=== PATIENT | female | born 1965 | race Hispanic/Latino ===

== ENCOUNTER 2016-11-04 00:15 | Inpatient (IN) | payer MEDICARE ==
[2016-11-04] MEDS ORDERED: ATROVENT IH ONE (00:35)
[2016-11-04] MEDS ORDERED: PROVENTIL IH ONE (00:35)
[2016-11-04] MEDS ORDERED: ADRENALINE P/F SUB-Q ONE (00:35)
[2016-11-04] MEDS ORDERED: MAGNESIUM SULFATE 2GM/50ML 2 GM/50 ML BAG IV ONE (00:35)
--- NOTE | 2016-11-04 00:36 | Emergency Department Report ---
ED General Adult HPI - General Chief complaint: Dyspnea/Respdistress Stated complaint: ZIGGY/SOB Time Seen by Provider: 11/04/16 00:33 Source: patient, EMS (verbal report received from EMS.ems notes not available at time of chart dictation), RN notes reviewed Mode of arrival: Ambulatory Limitations: Physical Limitation - History of Present Illness Initial comments: Primary care Dr.: Dr. Jose Armando Crane Nephrology: Dr. Ewa Barone Past medical history: Heart disease, hypertension, COPD, end-stage renal disease on dialysis, congestive heart failure, breast implants Patient on 2 L of oxygen nasal cannula This is a 51-year-old female. She is previously unknown to me. She presents to the hospital with EMS for shortness of breath, abdominal cramping, difficulty breathing. The symptoms are constant. They were shown physical exertion and decreased with rest. The patient reports compliance with her dialysis therapy. There is no hematemesis and bright red blood per rectum. There is no leg pain. There is no leg swelling. No recent change greater than 4 hours. No recent hospital admissions. Upon arrival to the ER, patient was tachypnea, wheezing, hypoxic, and speaking in partial sentences. She is started on stated therapy for COPD, including albuterol, Atrovent, steroids, magnesium. She was started on BiPAP therapy, found to be hypertensive, and initiated on nitroglycerin drip. Nitroglycerin drip is titrated, work of breathing improved, blood pressure came down, laboratory studies demonstrated elevated BNP, chronic renal insufficiency , and hyponatremia. A page is placed to discuss the patient's care with her private circular stuffer. The Hospital physician is paged. -: Gradual Location: abdomen Radiation: non-radiation Quality: aching Consistency: intermittent Improves with: none Worsens with: none Associated Symptoms: shortness of breath, weakness - Related Data Home Medications Medication Instructions Recorded Confirmed Last Taken ALPRAZolam [Xanax TAB] 2 mg PO Q8H 09/27/13 07/13/15 07/12/15 cloNIDine [Catapres] 0.3 mg PO TID 09/27/13 07/13/15 07/12/15 Lisinopril 10 mg PO BID 09/17/14 07/13/15 07/12/15 Carvedilol [Coreg] 25 mg PO BID 07/13/15 07/13/15 07/12/15 Previous Rx's Medication Instructions Recorded Last Taken Type Aspirin [Aspirin TAB] 81 mg PO QDAY #30 tablet 07/14/15 Unknown Rx Nicotine [Habitrol] 14 mg TD QDAY #14 patch 07/14/15 Unknown Rx Zolpidem [Ambien] 10 mg PO QHS PRN #14 tablet 07/14/15 Unknown Rx hydrALAZINE [Apresoline TAB] 25 mg PO Q8HR #60 tab 07/14/15 Unknown Rx ALBUTEROL Inhaler [ProAir HFA 2 puff IH QID PRN #1 inhalation 08/24/15 Unknown Rx Inhaler] ALBUTEROL NEB's [Proventil 0.083% 2.5 mg IH TID 30 Days 07/14/16 Unknown Rx NEBS] Atorvastatin Calcium [Lipitor] 20 mg PO QHS 30 Days 07/14/16 Unknown Rx Budesoni/Formotero 160-4.5(Nf) 2 puff IH BID 30 Days 07/14/16 Unknown Rx [Symbicort 160-4.5 (Nf)] Levofloxacin [Levaquin TAB] 500 mg PO Q48H #3 tablet 07/14/16 Unknown Rx predniSONE [Deltasone] 50 mg PO QDAY #5 tab 07/14/16 Unknown Rx Allergies Allergy/AdvReac Type Severity Reaction Status Date / Time Heparin Analogues Allergy Severe Shortness Verified 04/06/15 12:37 of Breath codeine Allergy Rash Verified 04/06/15 12:37 hydrocodone Allergy Nausea Verified 04/06/15 12:37 latex Allergy Hives Verified 04/06/15 12:37 ED Review of Systems ROS: Stated complaint: ZIGYG/SOB Other details as noted in HPI Comment: Unobtainable due to pts medical conditions Constitutional: malaise, weakness Respiratory: shortness of breath Cardiovascular: dyspnea on exertion Gastrointestinal: abdominal pain Genitourinary: as per HPI Musculoskeletal: as per HPI Skin: as per HPI Neurological: as per HPI, weakness Psychiatric: as per HPI, anxiety ED Past Medical Hx - Past Medical History Previous Medical History?: Yes Hx Hypertension: Yes (2007) Hx CVA: No Hx Heart Attack/AMI: Yes (08/2012) Hx Congestive Heart Failure: Yes (2007) Hx Diabetes: No Hx Deep Vein Thrombosis: No Hx Pulmonary Embolism: No Hx GERD: No Hx Liver Disease: No Hx Renal Disease: Yes (ESRD/graft right arm /Dialysis on M,W, F) Hx Sickle Cell Disease: No Hx Arthritis: Yes Hx Headaches / Migraines: Yes (with High bld pressure) Hx Seizures: No Hx Kidney Stones: No Hx Psychiatric Treatment: Yes (anxiety) Hx Asthma: No Hx COPD: Yes (2007) Hx Tuberculosis: No Hx Dementia: No Hx HIV: No - Surgical History Past Surgical History?: Yes Hx Coronary Stent: No Hx Open Heart Surgery: No Hx Pacemaker: No Hx Internal Defibrillator: No Hx Cholecystectomy: No Hx Appendectomy: No Hx Breast Surgery: Yes (breast implants) Additional Surgical History: Right subclavian vas cath. tubal ligation and reversal. rt arm dialysis shunt - Social History Smoking Status: Former Smoker Substance Use Type: None - Medications Home Medications: Home Medications Medication Instructions Recorded Confirmed Last Taken Type ALPRAZolam [Xanax TAB] 2 mg PO Q8H 09/27/13 07/13/15 07/12/15 History cloNIDine [Catapres] 0.3 mg PO TID 09/27/13 07/13/15 07/12/15 History Lisinopril 10 mg PO BID 09/17/14 07/13/15 07/12/15 History Carvedilol [Coreg] 25 mg PO BID 07/13/15 07/13/15 07/12/15 History Aspirin [Aspirin TAB] 81 mg PO QDAY #30 tablet 07/14/15 Unknown Rx Nicotine [Habitrol] 14 mg TD QDAY #14 patch 07/14/15 Unknown Rx Zolpidem [Ambien] 10 mg PO QHS PRN #14 tablet 07/14/15 Unknown Rx hydrALAZINE [Apresoline TAB] 25 mg PO Q8HR #60 tab 07/14/15 Unknown Rx ALBUTEROL Inhaler [ProAir HFA 2 puff IH QID PRN #1 inhalation 08/24/15 Unknown Rx Inhaler] ALBUTEROL NEB's [Proventil 0.083% 2.5 mg IH TID 30 Days 07/14/16 Unknown Rx NEBS] Atorvastatin Calcium [Lipitor] 20 mg PO QHS 30 Days 07/14/16 Unknown Rx Budesoni/Formotero 160-4.5(Nf) 2 puff IH BID 30 Days 07/14/16 Unknown Rx [Symbicort 160-4.5 (Nf)] Levofloxacin [Levaquin TAB] 500 mg PO Q48H #3 tablet 07/14/16 Unknown Rx predniSONE [Deltasone] 50 mg PO QDAY #5 tab 07/14/16 Unknown Rx ED Physical Exam - General Limitations: Physical Limitation General appearance: alert, in distress - Head Head exam: Present: atraumatic, normocephalic - Eye Eye exam: Present: normal appearance, EOMI - ENT ENT exam: Present: normal exam, normal orophraynx, mucous membranes moist, normal external ear exam - Neck Neck exam: Present: normal inspection, full ROM. Absent: tenderness, meningismus - Respiratory Respiratory exam: Present: respiratory distress, wheezes, rhonchi - Cardiovascular Cardiovascular Exam: Present: normal rhythm, tachycardia, normal heart sounds. Absent: systolic murmur, diastolic murmur, rubs, gallop - GI/Abdominal GI/Abdominal exam: Present: soft, normal bowel sounds. Absent: distended, tenderness, guarding, rebound, rigid, pulsatile mass - Extremities Exam Extremities exam: Present: normal inspection, full ROM, normal capillary refill , other (there is a right upper extremity AV fistula with an appropriate thrill) . Absent: pedal edema, joint swelling, calf tenderness - Back Exam Back exam: Present: normal inspection, full ROM. Absent: paraspinal tenderness - Neurological Exam Neurological exam: Present: alert, oriented X3, other (Extraocular movements intact. Tongue midline. No facial droop. Facial sensation intact to light touch in the V1, V2, V3 distribution bilaterally. 5 and 5 strength in 4 extremities.. Sensation is intact to light touch in 4 extremities.). Absent: motor sensory deficit - Psychiatric Psychiatric exam: Present: anxious - Skin Skin exam: Present: warm, dry, intact, normal color. Absent: rash ED Course Vital Signs 11/04/16 11/04/16 11/04/16 00:25 00:26 00:30 Temperature Pulse Rate 102 H 98 H 98 H Pulse Rate [ Anterior Bilateral Throughout] Respiratory 17 17 Rate Respiratory Rate [Anterior Bilateral Throughout] Blood Pressure 210/118 199/128 O2 Sat by Pulse 100 100 99 Oximetry 11/04/16 11/04/16 11/04/16 00:33 00:43 00:45 Temperature Pulse Rate 98 H Pulse Rate [ 98 H Anterior Bilateral Throughout] Respiratory 18 18 Rate Respiratory 18 Rate [Anterior Bilateral Throughout] Blood Pressure O2 Sat by Pulse 100 100 Oximetry 11/04/16 11/04/16 11/04/16 00:46 00:50 00:56 Temperature Pulse Rate 88 92 H 93 H Pulse Rate [ Anterior Bilateral Throughout] Respiratory 17 19 16 Rate Respiratory Rate [Anterior Bilateral Throughout] Blood Pressure 226/128 226/128 177/105 O2 Sat by Pulse 93 91 Oximetry 11/04/16 11/04/16 11/04/16 01:00 01:06 01:15 Temperature Pulse Rate 91 H 92 H 90 Pulse Rate [ Anterior Bilateral Throughout] Respiratory 17 17 16 Rate Respiratory Rate [Anterior Bilateral Throughout] Blood Pressure 160/94 160/94 149/87 O2 Sat by Pulse 89 90 93 Oximetry 11/04/16 11/04/16 11/04/16 01:30 01:45 01:51 Temperature 98.8 F Pulse Rate 89 95 H Pulse Rate [ 101 H Anterior Bilateral Throughout] Respiratory 16 17 Rate Respiratory 19 Rate [Anterior Bilateral Throughout] Blood Pressure 148/88 144/87 O2 Sat by Pulse 97 98 Oximetry 11/04/16 11/04/16 11/04/16 02:00 02:15 02:30 Temperature Pulse Rate 84 80 81 Pulse Rate [ Anterior Bilateral Throughout] Respiratory 15 14 14 Rate Respiratory Rate [Anterior Bilateral Throughout] Blood Pressure 145/86 131/80 139/79 O2 Sat by Pulse 99 97 98 Oximetry 11/04/16 11/04/16 11/04/16 02:45 03:00 03:15 Temperature Pulse Rate 77 72 71 Pulse Rate [ Anterior Bilateral Throughout] Respiratory 15 14 9 L Rate Respiratory Rate [Anterior Bilateral Throughout] Blood Pressure 120/69 117/67 120/65 O2 Sat by Pulse 97 97 99 Oximetry 11/04/16 11/04/16 03:30 03:45 Temperature Pulse Rate 72 69 Pulse Rate [ Anterior Bilateral Throughout] Respiratory 18 15 Rate Respiratory Rate [Anterior Bilateral Throughout] Blood Pressure 123/72 154/81 O2 Sat by Pulse 97 100 Oximetry - EJ/Peripheral Line Neck L Time Out Performed: Yes Indications: nurses unable to establis Skin Cleansed in Sterile Fashion: Yes Size: 20 Dressing Placed: Tegaderm Patient Tolerated Procedure: well ED Medical Decision Making - Lab Data Result diagrams: 11/04/16 00:50 11/04/16 00:50 Vital Signs 11/04/16 11/04/16 11/04/16 00:25 00:26 00:30 Temperature Pulse Rate 102 H 98 H 98 H Pulse Rate [ Anterior Bilateral Throughout] Respiratory 17 17 Rate Respiratory Rate [Anterior Bilateral Throughout] Blood Pressure 210/118 199/128 O2 Sat by Pulse 100 100 99 Oximetry 11/04/16 11/04/16 11/04/16 00:33 00:43 00:45 Temperature Pulse Rate 98 H Pulse Rate [ 98 H Anterior Bilateral Throughout] Respiratory 18 18 Rate Respiratory 18 Rate [Anterior Bilateral Throughout] Blood Pressure O2 Sat by Pulse 100 100 Oximetry 11/04/16 11/04/16 11/04/16 00:46 00:50 00:56 Temperature Pulse Rate 88 92 H 93 H Pulse Rate [ Anterior Bilateral Throughout] Respiratory 17 19 16 Rate Respiratory Rate [Anterior Bilateral Throughout] Blood Pressure 226/128 226/128 177/105 O2 Sat by Pulse 93 91 Oximetry 11/04/16 11/04/16 11/04/16 01:00 01:06 01:15 Temperature Pulse Rate 91 H 92 H 90 Pulse Rate [ Anterior Bilateral Throughout] Respiratory 17 17 16 Rate Respiratory Rate [Anterior Bilateral Throughout] Blood Pressure 160/94 160/94 149/87 O2 Sat by Pulse 89 90 93 Oximetry 11/04/16 01:30 Temperature 98.8 F Pulse Rate Pulse Rate [ Anterior Bilateral Throughout] Respiratory Rate Respiratory Rate [Anterior Bilateral Throughout] Blood Pressure O2 Sat by Pulse Oximetry Lab Results 11/04/16 11/04/16 11/04/16 Range/Units 00:50 00:50 00:50 WBC 7.8 (4.5-11.0) K/mm3 RBC 2.83 L (3.65-5.03) M/mm3 Hgb 10.2 (10.1-14.3) gm/dl Hct 29.6 L (30.3-42.9) % MCV 105 H (79-97) fl MCH 36 H (28-32) pg MCHC 35 H (30-34) % RDW 14.5 (13.2-15.2) % Plt Count 173 (140-440) K/mm3 Lymph % (Auto) 11.0 L (13.4-35.0) % Mitchell % (Auto) 4.4 (0.0-7.3) % Eos % (Auto) 1.5 (0.0-4.3) % Baso % (Auto) 0.3 (0.0-1.8) % Lymph # 0.9 L (1.2-5.4) K/mm3 Mitchell # 0.3 (0.0-0.8) K/mm3 Eos # 0.1 (0.0-0.4) K/mm3 Baso # 0.0 (0.0-0.1) K/mm3 Seg Neutrophils % 82.8 H (40.0-70.0) % Seg Neutrophils # 6.4 (1.8-7.7) K/mm3 Sodium 126 L (137-145) mmol/L Potassium 5.1 H (3.6-5.0) mmol/L Chloride 84.8 L (98-107) mmol/L Carbon Dioxide 24 (22-30) mmol/L Anion Gap 22 mmol/L BUN 27 H (7-17) mg/dL Creatinine 4.1 H (0.7-1.2) mg/dL Estimated GFR 11 ml/min BUN/Creatinine Ratio 6.58 % Glucose 109 H (65-100) mg/dL Lactic Acid 1.40 (0.7-2.0) mmol/L Calcium 8.7 (8.4-10.2) mg/dL Troponin T < 0.010 (0.00-0.029) ng/mL NT-Pro-B Natriuret Pep (0-900) pg/mL 11/04/16 Range/Units 00:50 WBC (4.5-11.0) K/mm3 RBC (3.65-5.03) M/mm3 Hgb (10.1-14.3) gm/dl Hct (30.3-42.9) % MCV (79-97) fl MCH (28-32) pg MCHC (30-34) % RDW (13.2-15.2) % Plt Count (140-440) K/mm3 Lymph % (Auto) (13.4-35.0) % Mitchell % (Auto) (0.0-7.3) % Eos % (Auto) (0.0-4.3) % Baso % (Auto) (0.0-1.8) % Lymph # (1.2-5.4) K/mm3 Mitchell # (0.0-0.8) K/mm3 Eos # (0.0-0.4) K/mm3 Baso # (0.0-0.1) K/mm3 Seg Neutrophils % (40.0-70.0) % Seg Neutrophils # (1.8-7.7) K/mm3 Sodium (137-145) mmol/L Potassium (3.6-5.0) mmol/L Chloride (98-107) mmol/L Carbon Dioxide (22-30) mmol/L Anion Gap mmol/L BUN (7-17) mg/dL Creatinine (0.7-1.2) mg/dL Estimated GFR ml/min BUN/Creatinine Ratio % Glucose (65-100) mg/dL Lactic Acid (0.7-2.0) mmol/L Calcium (8.4-10.2) mg/dL Troponin T (0.00-0.029) ng/mL NT-Pro-B Natriuret Pep 92855 H (0-900) pg/mL - EKG Data -: EKG Interpreted by Me - EKG Data 11/04/16 02:12 times, 87 bpm, motion artifact, poor R-wave progression, QTC prolonged at 510 ms, abnormal EKG, not consistent with STEMI. Atrial enlargement suggested. Appears unchanged when compared to prior EKG from July 2016 - Radiology Data Radiology results: image reviewed interpreted by me: X-ray of the chest is hyperinflated, demonstrates COPD - Medical Decision Making Differential diagnosis: Pulmonary hypertension, pneumonia, COPD exacerbation, CHF, volume overload Assessment and plan: 51-year-old female with a multifactorial respiratory failure requiring initiation of BiPAP and nitroglycerin therapy. She is found to be hyponatremic, normal troponin, x-ray of the chest does not demonstrate congestive heart failure, elevated proBNP is appreciated. Patient most likely has a mixed picture. She is given high-dose Lasix. The case is presented to the Hospital physician, Dr. Son, who accepts the patient to her service. The case is presented to the circular stuffer Dr Ale Bingham, his group will see the patient in the morning as a consult. Work of breathing has improved markedly since starting nitroglycerin glycerin therapy and BiPAP therapy. Critical Care Time: Yes Critical care time in (mins) excluding proc time.: 35 Critical care attestation.: If time is entered above; I have spent that time in minutes in the direct care of this critically ill patient, excluding procedure time. Critical Care Time: Critical care time includes multiple bedside evaluations, interpretation of laboratory studies, radiology studies, I'm spent managing positive pressure noninvasive ventilation, management of vasoactive medications, discussion with consulting services, including hospital medicine and nephrology. This does not include procedure time. ED Disposition Clinical Impression: COPD with exacerbation, End stage renal disease on dialysis, Hyponatremia, Dyspnea Disposition: OP ADMIT IP TO THIS HOSP Is pt being admited?: Yes Does the pt Need Aspirin: Yes Condition: Good Instructions: Chronic Obstructive Pulmonary Disease (ED) Referrals: PRIMARY CARE, [Primary Care Provider] - 3-5 Days
[2016-11-04] MEDS ORDERED: ADRENALIN ONE (00:37)
[2016-11-04] MEDS ORDERED: TRIDIL DRIP 50MG/250ML 50 MG/250 ML BOTTLE ONE (00:45)
[2016-11-04] MEDS ORDERED: TRIDIL DRIP 50MG/250ML 50 MG/250 ML BOTTLE IV ONE (01:13)
[2016-11-04 01:16] LABS: Anion Gap 22 mmol/L; BUN/Creatinine Ratio 6.58; Blood Urea Nitrogen 27 mg/dL (7-17); Calcium 8.7 mg/dL (8.4-10.2); Carbon Dioxide 24 mmol/L (22-30); Chloride 84.8 mmol/L (98-107); Glucose 109 mg/dL (65-100); Potassium 5.1 mmol/L (3.6-5.0); Sodium 126 mmol/L (137-145)
[2016-11-04 01:22] LABS: Basophils % (Auto) 0.3 % (0.0-1.8); Eosinophils % (Auto) 1.5 % (0.0-4.3); Hematocrit 29.6 % (30.3-42.9); Hemoglobin 10.2 gm/dl (10.1-14.3); Mean Corpuscular HGB Conc 35 % (30-34); Mean Corpuscular Hemoglobin 36 pg (28-32); Mean Corpuscular Volume 105 fl (79-97); Platelet Count 173 K/mm3 (140-440); Red Blood Count 2.83 M/mm3 (3.65-5.03); Red Cell Distribution Width 14.5 % (13.2-15.2); White Blood Count 7.8 K/mm3 (4.5-11.0)
[2016-11-04] MEDS ORDERED: LASIX IV ONE (01:35)
[2016-11-04 01:39] LABS: INR 1.03 (0.87-1.13)
[2016-11-04] MEDS ORDERED: BABY ASPIRIN PO ONE (01:46)
--- NOTE | 2016-11-04 01:48 | XRay Report ---
FINAL REPORT EXAM: XR CHEST 1V AP HISTORY: sob TECHNIQUE: 2, portable chest x-rays. PRIORS: 09 July 2016. FINDINGS: Patient rotated to the right. Mild cardiomegaly stable. Lungs are mildly hyperinflated, with probable chronic interstitial change and sequelae of COPD about the same. No significant vascular congestion, focal consolidation or apparent pneumothorax. IMPRESSION: 1. Stable examination. No acute consolidation.
--- NOTE | 2016-11-04 02:47 | Admit Criteria Form ---
Admission Criteria Documentation: RESPIRATORY FAILURE GRG Clinical Indications for Admission to Inpatient Care (Place 'X' for any and all applicable criteria): Hospital admission is needed for appropriate care of the patient because of acute respiratory failure or insufficiency as indicated by ANY ONE of the following(1)(2)(3)(4)(5)(6)(7)(8): [ X]I. Mechanical ventilation needed (acute invasive or noninvasive) [ ]II. Severe ventilation deficit as indicated by ANY ONE of the following (9) [ ]a) Respiratory acidosis (pH less than 7.32 and partial pressure of carbon dioxide greater than 40 mm Hg (5.3 kPa)) [ ]b) Partial pressure of carbon dioxide greater than 44 mm Hg (5.9 kPa ) (new) [ ]c) Airflow measurements less than 25% of predicted (eg, peak expiratory flow rate less than 100 L/minute) [ ]d) Forced vital capacity less than 15 mL/kg of ideal body weight, or 50% decrease in vital capacity from baseline [ ]III. Noncardiac pulmonary edema not resolving with rapid emergency treatment (8) [ ]IV. Severe respiratory distress as indicated by ANY ONE of the following: [ ]a) Severe tachypnea (respiratory rate greater than 30, greater than 45 for 6-month-old, greater than 60 for ) [ ]b) Severe hypoxemia (partial pressure of oxygen less than 50 mm Hg ( 6.7 kPa) on greater than 50% oxygen or partial pressure of oxygen to FIO2 ratio less than 200) [ ]c) Mental status deterioration from respiratory disease [ ]V. Airway obstruction or inadequate protection [A](10)(11) The original [employer] content created by [employer] has been revised. The portions of the content which have been revised are identified through the use of italic text or in bold, and [employer] has neither reviewed nor approved the modified material. All other unmodified content is copyright [employer]. Please see references footnoted in the original [employer] edition 2016 Admission Criteria Met: Yes
[2016-11-04] MEDS ORDERED: APRESOLINE IV ONE (04:42)
[2016-11-04] MEDS ORDERED: APRESOLINE IV PRN (04:44)
[2016-11-04] MEDS ORDERED: XANAX PO ONE (06:15)
--- NOTE | 2016-11-04 07:02 | History and Physical Report ---
History of Present Illness Date of examination: 11/04/16 Date of admission: 11/04/16 04:41 History of present illness: 51-year-old man with a history of coronary artery disease, hypertension, COPD, end-stage renal disease on dialysis, CHF comes emergency room with complaints of worsening shortness of breath, wheezing. Patient was interested distress and started on BiPAP Constitutional: no fever, no chills, no weight loss Ears, eyes, nose, mouth and throat: no nasal congestion, no nasal discharge, no sinus pressure, no vision change, no red eye. Neck: No neck pain or rigidity. Cardiovascular: chest pain, no orthopnea, no palpitations, no leg swelling Respiratory: No no congestion, no wheezing Gastrointestinal: abdominal pain, hematochezia, no nausea, no vomiting Genitourinary : no dysuria, frequency , no hematuria Musculoskeletal: no joint swelling or muscle ache Integumentary: no rash, no pruritis Neurological: no parathesias, no numbness, no focal weakness Endocrine: no cold or heat intolerance, no polyuria or polydipsia Hematologic/Lymphatic: no easy bruising, no easy bleeding, no gland swelling Allergic/Immunologic: no urticaria, no angioedema. Past medical history:coronary artery disease, hypertension, COPD, end-stage renal disease on dialysis, CHF PAST SURGICAL HISTORY: Breast implants, tubal ligation and reversal SOCIAL HISTORY: Denies alcohol, tobacco, drugs FAMILY HISTORY: Hypertension Medications and Allergies Allergies Allergy/AdvReac Type Severity Reaction Status Date / Time Heparin Analogues Allergy Severe Shortness Verified 04/06/15 12:37 of Breath codeine Allergy Rash Verified 04/06/15 12:37 hydrocodone Allergy Nausea Verified 04/06/15 12:37 latex Allergy Hives Verified 04/06/15 12:37 Home Medications Medication Instructions Recorded Confirmed Last Taken Type ALPRAZolam [Xanax TAB] 2 mg PO Q8H 09/27/13 11/04/16 07/12/15 History cloNIDine [Catapres] 0.3 mg PO TID 09/27/13 11/04/16 07/12/15 History Lisinopril 10 mg PO BID 09/17/14 11/04/16 07/12/15 History Carvedilol [Coreg] 25 mg PO BID 07/13/15 11/04/16 07/12/15 History Aspirin [Aspirin TAB] 81 mg PO QDAY #30 tablet 07/14/15 11/04/16 Unknown Rx Zolpidem [Ambien] 10 mg PO QHS PRN #14 tablet 07/14/15 11/04/16 Unknown Rx hydrALAZINE [Apresoline TAB] 25 mg PO Q8HR #60 tab 07/14/15 11/04/16 Unknown Rx ALBUTEROL Inhaler [ProAir HFA 2 puff IH QID PRN #1 inhalation 08/24/15 11/04/16 Unknown Rx Inhaler] ALBUTEROL NEB's [Proventil 0.083% 2.5 mg IH TID 30 Days 07/14/16 11/04/16 Unknown Rx NEBS] Atorvastatin Calcium [Lipitor] 20 mg PO QHS 30 Days 07/14/16 11/04/16 Unknown Rx Budesoni/Formotero 160-4.5(Nf) 2 puff IH BID 30 Days 07/14/16 11/04/16 Unknown Rx [Symbicort 160-4.5 (Nf)] Active Meds: Active Medications Hydralazine HCl (Apresoline) 5 mg IV Q6H PRN PRN Reason: Hypertension Nitroglycerin/Dextrose (Tridil Drip 50mg/250ml) 50 mg in 250 mls @ 3 mls/hr IV TITR ONE; 10 MCG/MIN PRN Reason: Protocol Stop: 11/07/16 12:32 Last Titration: 11/04/16 03:35 Dose: 0 mcg/min, 0 mls/hr Exam - Physical Exam Narrative exam: Gen. appearance: Patient lying in bed, no apparent distress HEENT: Normocephalic, atraumatic, pupils equally round and reactive to light, extraocular movement intact, and no sclericterus,. No JVD or thyromegaly or nodule,neck supple, no carotid bruit ,mucous membranes moist, no exudate or erythema Heart: S1, S2, regular rate and rhythm Lungs: Wheezing bilaterally, breathing comfortable Abdomen: Positive bowel sounds, nontender, nondistended, no organomegaly Extremity: No edema, cyanosis, clubbing Skin: No rash, nodules, warm, dry Neuro: Oriented 3, cranial nerves II-12 intact, speech is fluent, motor and sensory intact - Constitutional Vitals: Temp Pulse Resp BP Pulse Ox 98.8 F 72 24 137/76 99 11/04/16 01:30 11/04/16 06:11 11/04/16 06:18 11/04/16 05:30 11/04/16 05:30 Results - Labs CBC & Chem 7: 11/04/16 00:50 11/04/16 00:50 Assessment and Plan Acute respiratory failure COPD exacerbation Coronary artery disease End-stage renal disease on dialysis CHF, stable admit Hypertension Thrombocytopenia Admits medicine Start steroids, nebulizer treatments Consult renal for dialysis Continue appropriate outpatient medications, start DVT prophylaxis
[2016-11-04] MEDS ORDERED: PROAIR IH PRN (07:42)
[2016-11-04] MEDS ORDERED: NON-FORMULARY (Alprazolam [Xanax Tab] 2 MG) PO SCH (07:45)
[2016-11-04] MEDS ORDERED: PROVENTIL IH SCH (08:00)
[2016-11-04] MEDS: DUONEB *Not for PRN Use IH SCH ×2 (09:57→14:57)
[2016-11-04] MEDS ORDERED: ASPIRIN PO SCH (10:00)
[2016-11-04] MEDS ORDERED: NON-FORMULARY (Budesoni/Formotero 160-4.5(Nf) 2 PUFF) IH SCH (10:00)
--- NOTE | 2016-11-04 10:59 | Consultation ---
History of Present Illness - Reason for Consult Consult date: 11/04/16 end stage renal disease - History of Present Illness This is a 51 year old female who has a history of Hypertension, COPD on home oxygen, CHF, CAD and ESRD on HD who presented to the hospital today with a chief complaint of Shortness of breath. CXR was obtained in E.R that revealed chronic COPD. Patient was placed on breathing treatments and steroid and is feeling better. Patient reports that she was also feeling anxious yesterday evening as well when she began to have her shortnesso f breath and took one of her Xanax pills. Patient was also noted to be with uncontrolled Hypertension and was placed on Nitroglycerin drip which has been weaned. Patient has been compliant with hemodialysis over the last several months but continues to smoke. Patient's Cardiac Nurse Specialist is Dr. Aranda. Patient was last hemodialyzed on Monday. We are being consulted for management of this patient 's ESRD. Past History Past Medical History: anemia, CAD, COPD, dialysis, ESRD, heart failure, hypertension Past Surgical History: Other (AVF placement) Social history: no significant social history Family history: no significant family history Medications and Allergies Allergies Allergy/AdvReac Type Severity Reaction Status Date / Time Heparin Analogues Allergy Severe Shortness Verified 04/06/15 12:37 of Breath codeine Allergy Rash Verified 04/06/15 12:37 hydrocodone Allergy Nausea Verified 04/06/15 12:37 latex Allergy Hives Verified 04/06/15 12:37 Home Medications Medication Instructions Recorded Confirmed Last Taken Type ALPRAZolam [Xanax TAB] 2 mg PO Q8H 09/27/13 11/04/16 07/12/15 History cloNIDine [Catapres] 0.3 mg PO TID 09/27/13 11/04/16 07/12/15 History Lisinopril 10 mg PO BID 09/17/14 11/04/16 07/12/15 History Carvedilol [Coreg] 25 mg PO BID 07/13/15 11/04/16 07/12/15 History Aspirin [Aspirin TAB] 81 mg PO QDAY #30 tablet 07/14/15 11/04/16 Unknown Rx Zolpidem [Ambien] 10 mg PO QHS PRN #14 tablet 07/14/15 11/04/16 Unknown Rx hydrALAZINE [Apresoline TAB] 25 mg PO Q8HR #60 tab 07/14/15 11/04/16 Unknown Rx ALBUTEROL Inhaler [ProAir HFA 2 puff IH QID PRN #1 inhalation 08/24/15 11/04/16 Unknown Rx Inhaler] ALBUTEROL NEB's [Proventil 0.083% 2.5 mg IH TID 30 Days 07/14/16 11/04/16 Unknown Rx NEBS] Atorvastatin Calcium [Lipitor] 20 mg PO QHS 30 Days 07/14/16 11/04/16 Unknown Rx Budesoni/Formotero 160-4.5(Nf) 2 puff IH BID 30 Days 07/14/16 11/04/16 Unknown Rx [Symbicort 160-4.5 (Nf)] Active Meds: Active Medications Albuterol (Proventil) 2.5 mg IH TID [facility] Last Admin: 11/04/16 09:58 Dose: Not Given Albuterol (Proventil) 2.5 mg IH Q4HRT PRN PRN Reason: Shortness Of Breath Albuterol/Ipratropium (Duoneb *Not For Prn Use*) 1 ampul IH Q6HRT [facility] Last Admin: 11/04/16 09:57 Dose: 1 ampul Alprazolam (Xanax) 2 mg PO Q8H [facility] Aspirin (Baby Aspirin) 81 mg PO QDAY [facility] Atorvastatin Calcium (Lipitor) 20 mg PO QHS [facility] Carvedilol (Coreg) 25 mg PO BID [facility] Clonidine HCl (Catapres) 0.3 mg PO TID [facility] Hydralazine HCl (Apresoline) 5 mg IV Q6H PRN PRN Reason: Hypertension Hydralazine HCl (Apresoline) 25 mg PO Q8HR [facility] Nitroglycerin/Dextrose (Tridil Drip 50mg/250ml) 50 mg in 250 mls @ 3 mls/hr IV TITR ONE; 10 MCG/MIN PRN Reason: Protocol Stop: 11/07/16 12:32 Last Titration: 11/04/16 03:35 Dose: 0 mcg/min, 0 mls/hr Methylprednisolone Sodium Succinate (Solu-Medrol) 125 mg IV Q6H [facility] Miscellaneous Medication (Budesoni/Formotero 160-4.5(Nf)) 2 puff IH BID [facility] Zolpidem Tartrate (Ambien) 10 mg PO QHS PRN PRN Reason: Insomnia Review of Systems Constitutional: fatigue, weakness, no weight loss, no weight gain, no fever, no chills, no sweats Ears, nose, mouth and throat: no ear pain, no ear discharge, no tinnitis, no decreased hearing, no nose pain, no nasal congestion, no nasal discharge Breasts: deferred Cardiovascular: shortness of breath, dyspnea on exertion, high blood pressure Respiratory: shortness of breath, dyspnea on exertion, no cough with sputum, no excessive sputum, no hemoptysis Gastrointestinal: abdominal pain, no nausea, no vomiting, no diarrhea, no constipation, no change in bowel habits, no hematemesis Genitourinary Female: no pelvic pain, no flank pain, no menorrhagia, no dysuria , no urinary frequency, no urgency Menstruation: no premenarcheal, no post hysterectomy, no ammenorrhea, no period normal, no period heavy Rectal: no pain, no incontinence, no bleeding, no itching, no hemorrhoids Musculoskeletal: no neck stiffness, no neck pain, no shooting arm pain, no arm numbness/tingling, no low back pain, no shooting leg pain, no leg numbness/ tingling Integumentary: no rash, no pruritis, no redness, no sores, no wounds, no jaundice, no boils, no blisters Neurological: weakness, no head injury, no transient paralysis, no paralysis, no parathesias, no numbness, no tingling, no seizures, no syncope, no tremors Psychiatric: anxiety, no memory loss, no change in sleep habits, no sleep disturbances, no insomnia, no change in appetite, no suicidal ideation, no disorientation, no hallucinations Endocrine: no cold intolerance, no heat intolerance, no polyphagia, no excessive thirst, no polydipsia, no polyuria, no nocturia Hematologic/Lymphatic: no easy bruising, no easy bleeding, no lymphadenopathy, no lymphedema Exam - Vital Signs Vital signs: Vital Signs Pulse Resp Pulse Ox 102 H 17 100 11/04/16 00:25 11/04/16 00:25 11/04/16 00:25 - General Appearance General appearance: well-developed, appears stated age, fatigue EENT: ATNC, PERRL, hearing intact, vision intact Neck: Present: neck supple, trachea midline Respiratory: Decreased Breath Sounds Heart: regular, S1S2 Gastrointestinal: Present: normoactive bowel sounds Integumentary: warm and dry Neurologic: alert and oriented x3 Musculoskeletal: Absent: deformities, joint swelling Psychiatric: mood/affect appropriate, cooperative Results - Lab Results 11/04/16 00:50 11/04/16 00:50 Most recent lab results Calcium 8.7 mg/dL (8.4-10.2) 11/04/16 00:50 Assessment and Plan - Patient Problems (1) COPD with exacerbation Current Visit: Yes Status: Chronic Plan to address problem: On Albuterol, Budesonide and Solumedrol (2) End stage renal disease on dialysis Current Visit: Yes Status: Chronic Plan to address problem: Patient is on hemodialysis every Monday, Monday and Monday's Patient is due for hemodialysis today Hemodialysis has been ordered today with UF goal 3-[address] on fluid restriction of 1 liter per day Obtain Phosphorus and repeat CMP levels in a.m Renal diet Monitor I/O's Obtain daily weights (3) Hyponatremia Current Visit: Yes Status: Acute Plan to address problem: Likely dilutional secondary to ESRD. Hemodialysis today Fluid restriction of 1 liter per day (4) Hypertensive CKD, ESRD on dialysis Current Visit: No Status: Acute Plan to address problem: S/P Nitroglycerin drip On Carvedilol 25 mg po BID, Clonidine 0.3 mg po TID and Hydralazine 25 mg po TID
[2016-11-04] MEDS ORDERED: PROVENTIL IH PRN ×2 (12:00)
[2016-11-04] MEDS ORDERED: NACL 0.9 (PRIMING MACHINE ONLY DIALYSIS) MC ONE (12:22)
[2016-11-04] MEDS: COREG PO SCH ×2 (16:07→21:09)
[2016-11-04] MEDS: XANAX PO SCH (16:07)
[2016-11-04] MEDS: CATAPRES PO SCH ×2 (16:07→21:09)
[2016-11-04] MEDS: APRESOLINE PO SCH ×3 (16:07→21:10)
[2016-11-04] MEDS: BABY ASPIRIN PO SCH (16:07)
--- NOTE | 2016-11-04 18:50 | Event Note ---
Date: 11/04/16 Patient was admitted this morning with worsening shortness of breath, end-stage renal disease When evaluated, medical records reviewed, follow nephrology evaluation and recommendations Continue current management, plan of care discussed with the patient and her nurse
[2016-11-04] MEDS ORDERED: PULMICORT IH SCH (20:00)
[2016-11-04] MEDS ORDERED: BROVANA NEBU IH SCH (20:00)
[2016-11-04] MEDS: PULMICORT IH SCH (20:06)
[2016-11-04] MEDS: BROVANA NEBU IH SCH (20:06)
[2016-11-04] MEDS ORDERED: AMBIEN PO PRN (22:00)
[2016-11-05] MEDS: DUONEB *Not for PRN Use IH SCH ×4 (00:45→13:15)
[2016-11-05 04:58] LABS: Hematocrit 31.1 % (30.3-42.9); Hemoglobin 10.6 gm/dl (10.1-14.3); Mean Corpuscular HGB Conc 34 % (30-34); Mean Corpuscular Hemoglobin 36 pg (28-32); Mean Corpuscular Volume 105 fl (79-97); Platelet Count 152 K/mm3 (140-440); Red Blood Count 2.95 M/mm3 (3.65-5.03); Red Cell Distribution Width 15.1 % (13.2-15.2); White Blood Count 7.2 K/mm3 (4.5-11.0)
[2016-11-05 05:12] LABS: Chloride 93.8 mmol/L (98-107); Potassium 4.5 mmol/L (3.6-5.0)
[2016-11-05] MEDS: XANAX PO SCH ×2 (05:35→06:33)
[2016-11-05 06:21] LABS: Anisocytosis 1+; Basophils % (Manual) 0 % (0.0-1.8); Blastocytes % (Manual) 0 %; Diff Status Complete; Eosinophils % (Manual) 0 % (0.0-4.3); Macrocytosis 1+; Platelet Estimate Consistent w Auto; Polychromasia Rare
[2016-11-05] MEDS: APRESOLINE PO SCH ×2 (06:33→14:02)
[2016-11-05] MEDS: PULMICORT IH SCH (07:34)
[2016-11-05] MEDS: BROVANA NEBU IH SCH (07:34)
[2016-11-05] MEDS ORDERED: XANAX PO SCH (08:00)
[2016-11-05] MEDS: CATAPRES PO SCH ×2 (08:12→14:03)
[2016-11-05] MEDS: COREG PO SCH (09:55)
[2016-11-05] MEDS: BABY ASPIRIN PO SCH (09:55)
--- NOTE | 2016-11-05 09:57 | Progress Note ---
Assessment and Plan (1) COPD with exacerbation Current Visit: Yes Status: Chronic Plan to address problem: On Albuterol, Budesonide and Solumedrol (2) End stage renal disease on dialysis Current Visit: Yes Status: Chronic Plan to address problem: HD again today for clearance and volume removal as tolerated Will place on fluid restriction of 1 liter per day Obtain Phosphorus and repeat CMP levels in a.m Renal diet Monitor I/O's Obtain daily weights (3) Hyponatremia Current Visit: Yes Status: Acute Plan to address problem: improved with HD Fluid restriction of 1 liter per day (4) Hypertensive CKD, ESRD on dialysis Current Visit: No Status: Acute Plan to address problem: S/P Nitroglycerin drip On Carvedilol 25 mg po BID, Clonidine 0.3 mg po TID and Hydralazine 25 mg po TID Subjective Date of service: 11/05/16 Principal diagnosis: ESRD Interval history: tolerated HD well yesterday, SOB is improving Objective - Vital Signs Vital signs: Vital Signs - 12hr 11/05/16 11/05/16 11/05/16 00:04 05:07 07:36 Temperature 97.6 F 98.2 F Pulse Rate 80 77 Pulse Rate [ 72 Anterior Bilateral Throughout] Respiratory 18 18 Rate Respiratory 18 Rate [Anterior Bilateral Throughout] Blood Pressure 146/69 189/88 O2 Sat by Pulse 99 98 Oximetry 11/05/16 11/05/16 07:45 08:44 Temperature 98.2 F Pulse Rate 74 Pulse Rate [ 75 Anterior Bilateral Throughout] Respiratory 74 H Rate Respiratory 18 Rate [Anterior Bilateral Throughout] Blood Pressure 168/83 O2 Sat by Pulse 100 Oximetry - General Appearance General appearance: well-developed, cachectic EENT: ATNC, PERRL, mucous membranes moist Neck: no JVD, no carotid bruit Respiratory: Present: Wheezes, Decreased Breath Sounds. Absent: Rales Cardiology: regular, S1S2 Gastrointestinal: normoactive bowel sounds, no tenderness, no distended, no guarding Integumentary: no rash, warm and dry Neurologic: no focal deficit, no asterixis, alert and oriented x3 Musculoskeletal: other (no edema in BLE) Psychiatric: mood/affect appropriate, cooperative - Lab 11/05/16 03:38 11/05/16 03:38 Most recent lab results Calcium 9.0 mg/dL (8.4-10.2) 11/05/16 03:38 Phosphorus 3.00 mg/dL (2.5-4.5) 11/05/16 03:38
[2016-11-05 12:51] VITALS: BP 154/80
--- NOTE | 2016-11-05 12:57 | Discharge Summary ---
Providers - Providers Date of Admission: 11/04/16 04:41 Date of discharge: 11/05/16 Attending physician: BIANCA Bingham Primary care physician: DIRECTOR OF OUTREACH Hospitalization Condition: Good Hospital course: See Dictated discharge summary in reports Disposition: DC-01 TO HOME OR SELFCARE Time spent for discharge: 32 min Core Measure Documentation - Palliative Care Palliative Care/ Comfort Measures: Not Applicable - Core Measures Any of the following diagnoses?: none Exam - Constitutional Vitals: Temp Pulse Resp BP Pulse Ox 98.2 F 74 20 168/83 100 11/05/16 08:44 11/05/16 10:00 11/05/16 10:00 11/05/16 09:55 11/05/16 10:00 General appearance: Present: no acute distress, well-nourished - EENT Eyes: Present: PERRL ENT: hearing intact, clear oral mucosa - Neck Neck: Present: supple, normal ROM - Respiratory Respiratory effort: normal Respiratory: bilateral: CTA - Cardiovascular Heart Sounds: Present: S1 & S2. Absent: rub, click - Extremities Extremities: pulses symmetrical, No edema Peripheral Pulses: within normal limits - Abdominal General gastrointestinal: Present: soft, non-tender, non-distended, normal bowel sounds Female genitourinary: Present: normal - Integumentary Integumentary: Present: clear, warm, dry - Musculoskeletal Musculoskeletal: gait normal, strength equal bilaterally - Psychiatric Psychiatric: appropriate mood/affect, intact judgment & insight - Neurologic Neurologic: CNII-XII intact, moves all extremities Plan Activity: no restrictions Diet: renal Follow up with: PRIMARY CAREMD [Primary Care Provider] - 3-5 Days
--- NOTE | 2016-11-05 14:01 | Discharge Summary ---
HOSPITAL COURSE: The patient was admitted for increasing shortness of breath and respiratory distress. The patient presented to the Emergency Room with shortness of breath, abdominal cramping, difficulty breathing. Also increasing with physical exertion and decreasing with rest. The patient reports compliance with dialysis. No hematemesis, no bright blood per rectum. No leg swelling. Also, the patient has COPD and the patient is on albuterol, Atrovent, steroids and magnesium. She was started on BiPAP therapy and was also started on nitroglycerin drip because of the blood pressure. The patient did well in the ER, responded to nebulizer treatments and nitroglycerin drip. The patient's nitroglycerin drip was discontinued to telemetry. The patient had nebulizer treatments and hemodialysis treatments, after which, the patient's blood pressure has become better and breathing has improved dramatically. Her blood pressure dropped from 210/118 to 168/83 over the course of next 36-48 hours. The patient to stop smoking. At the time of examination on 11/05/2016, the patient has clear lung sounds, no wheezing, no shortness of breath, no respiratory distress. The patient is wanting to go home. The patient stated that she is going to be compliant with hemodialysis. The patient's blood pressure is reasonable. OBJECTIVE: Vital signs at the time of discharge are blood pressure of 168/73, pulse of 71, sats of 100%, temperature of 98.2%. ASSESSMENT AND PLAN: 1. Chronic obstructive pulmonary disease exacerbation. 2. Volume overload. 3. Hypertensive emergency, which is improved. 4. Hyperlipidemia. The patient is being discharged on clonidine 0.3, three times a day; lisinopril 10 mg twice a day and Coreg 25 mg twice a day. Nebulizer treatments. Also, the patient to stop smoking. REPEAT DISCHARGE DIAGNOSES: 1. Hypertensive emergency. 2. Chronic obstructive pulmonary disease exacerbation. 3. Volume overload. 4. End-stage renal disease, on dialysis. 5. Hyperlipidemia. 6. Nicotine dependence. Follow up with , the yam curer and also follow up with PCP. JOB# [id number] VSM/NTS
== END 2016-11-05 15:32 | disposition home or self-care (01) | DRG 189 ==
LOC: ED 00:15 → 4A 04:41
PROVIDERS: ADMIT Internal Medicine; ATTEND Internal Medicine
PROC: 5A1D60Z (ICD-10-PCS; principal; 2016-11-04)
PROC: 5A09357 Assistance with Respiratory Ventilation, Less than 24 Consecutive Hours, Continuous Positive Airway Pressure (ICD-10-PCS; 2016-11-04)
DX: J96.01 Acute respiratory failure with hypoxia (principal); N18.6 End stage renal disease; I13.2 Hypertensive heart and chronic kidney disease with heart failure and with stage 5 chronic kidney disease, or end stage renal disease; J44.1 Chronic obstructive pulmonary disease with (acute) exacerbation; E87.1 Hypo-osmolality and hyponatremia; I16.1 Hypertensive emergency; I50.9 Heart failure, unspecified; D69.6 Thrombocytopenia, unspecified; I25.2 Old myocardial infarction; G43.909 Migraine, unspecified, not intractable, without status migrainosus; F41.9 Anxiety disorder, unspecified; I25.10 Atherosclerotic heart disease of native coronary artery without angina pectoris; Z82.49 Family history of ischemic heart disease and other diseases of the circulatory system; Z88.5 Allergy status to narcotic agent; Z88.6 Allergy status to analgesic agent; Z91.040 Latex allergy status; Z79.899 Other long term (current) drug therapy; Z98.51 Tubal ligation status; Z87.891 Personal history of nicotine dependence
CPT/HCPCS: 36415; 71010; 80048; 82140; 83880; 84100; 84484; 85007; 85025; 85610; 93005; 93010; 94640; 94644; 96365; 96375; A9270-GY; J0171; J0360; J1940; J2930; J3475; J7030

== ENCOUNTER 2016-12-16 02:54 | Inpatient (IN) | payer MEDICARE ==
[2016-12-16 04:31] LABS: Basophils % (Auto) 0.5 % (0.0-1.8); Hematocrit 38.4 % (30.3-42.9); Hemoglobin 12.7 gm/dl (10.1-14.3); Mean Corpuscular HGB Conc 33 % (30-34); Mean Corpuscular Hemoglobin 34 pg (28-32); Mean Corpuscular Volume 102 fl (79-97); Platelet Count 142 K/mm3 (140-440); Red Blood Count 3.76 M/mm3 (3.65-5.03); Red Cell Distribution Width 14.2 % (13.2-15.2); White Blood Count 7.1 K/mm3 (4.5-11.0)
[2016-12-16 04:38] LABS: INR 0.93 (0.87-1.13)
[2016-12-16 04:39] LABS: Partial Thromboplastin Time 27.5 Sec. (24.2-36.6)
[2016-12-16 05:55] LABS: BUN/Creatinine Ratio 7.67; Blood Urea Nitrogen 33 mg/dL (7-17); Calcium 7.7 mg/dL (8.4-10.2); Carbon Dioxide 19 mmol/L (22-30); Chloride 84.7 mmol/L (98-107); Glucose 101 mg/dL (65-100); Sodium 128 mmol/L (137-145)
[2016-12-16 06:14] LABS: Anion Gap 30 mmol/L; Potassium 5.9 mmol/L (3.6-5.0)
[2016-12-16] MEDS ORDERED: XANAX PO ONE ×2 (07:06→22:37)
[2016-12-16] MEDS ORDERED: D50W (25GM) Syringe IV ONE (07:09)
--- NOTE | 2016-12-16 07:11 | Emergency Department Report ---
ED Chest Pain HPI - General Chief Complaint: Chest Pain Stated Complaint: POSS HIGH BP Time Seen by Provider: 12/16/16 06:42 Source: patient Mode of arrival: Wheelchair Limitations: No Limitations - History of Present Illness Initial Comments: 51-year-old female with end-stage renal disease here with shortness of breath and chest pain. Patient states she woke up feeling very short of breath and having difficult breathing. Had some mild chest pain with these symptoms. Denies fevers chills. She is very anxious when speaking with her. She speaks in 5 word sentences. MD Complaint: chest pain, other (shortness of breath) -: Sudden Onset: during rest, during exertion Pain Location: substernal Pain Radiation: none Severity scale (0 -10): 8 Improves With: other (oxygen) Worsens With: nothing re: dyspnea. denies: nausea, vomting, diaphoresis Other Symptoms: denies: cough, fever, syncope, rash, acid taste in mouth, palpitations, burping - Related Data Home Medications Medication Instructions Recorded Confirmed Last Taken ALPRAZolam [Xanax TAB] 2 mg PO Q8H 09/27/13 12/16/16 07/12/15 Previous Rx's Medication Instructions Recorded Last Taken Type Zolpidem [Ambien] 10 mg PO QHS PRN #14 tablet 07/14/15 Unknown Rx ALBUTEROL Inhaler [ProAir HFA 2 puff IH QID PRN #1 inhalation 08/24/15 Unknown Rx Inhaler] ALBUTEROL NEB's [Proventil 0.083% 2.5 mg IH TID 30 Days 11/05/16 Unknown Rx NEBS] Aspirin [Aspirin TAB] 81 mg PO QDAY #100 tablet 11/05/16 Unknown Rx AtorvaSTATin [Lipitor] 20 mg PO QHS #30 tablet 11/05/16 Unknown Rx Budesoni/Formotero 160-4.5(Nf) 2 puff IH BID 30 Days 11/05/16 Unknown Rx [Symbicort 160-4.5 (Nf)] Carvedilol [Coreg] 25 mg PO BID #60 tablet 11/05/16 Unknown Rx Lisinopril 10 mg PO BID #60 11/05/16 07/12/15 Rx cloNIDine [Catapres] 0.3 mg PO TID #90 tablet 07/29/17 Unknown Rx hydrALAZINE [Apresoline TAB] 50 mg PO Q8HR #90 tablet 11/05/16 Unknown Rx Allergies Allergy/AdvReac Type Severity Reaction Status Date / Time Heparin Analogues Allergy Severe Shortness Verified 04/06/15 12:37 of Breath codeine Allergy Rash Verified 04/06/15 12:37 hydrocodone Allergy Nausea Verified 04/06/15 12:37 latex Allergy Hives Verified 04/06/15 12:37 Heart Score - HEART Score History: Slightly suspicious EKG: Non-specific Age: 45-65 Risk factors: > 3 risk factors or hx of atherosclerotic disease Troponin: < normal limit HEART Score: 4 ED Review of Systems ROS: Stated complaint: POSS HIGH BP Other details as noted in HPI Comment: All other systems reviewed and negative Constitutional: weakness Eyes: denies: eye pain, eye discharge, vision change ENT: denies: ear pain, throat pain Respiratory: shortness of breath, SOB with exertion, SOB at rest. denies: cough , wheezing Cardiovascular: chest pain, dyspnea on exertion, edema. denies: palpitations, paroxysmal nocturnal dyspnea Endocrine: no symptoms reported Gastrointestinal: denies: abdominal pain, nausea, diarrhea Genitourinary: denies: urgency, dysuria, discharge Musculoskeletal: denies: back pain, joint swelling, arthralgia Skin: denies: rash, lesions Neurological: denies: headache, weakness, paresthesias Psychiatric: anxiety. denies: depression Hematological/Lymphatic: denies: easy bleeding, easy bruising ED Past Medical Hx - Past Medical History Previous Medical History?: Yes Hx Hypertension: Yes (2007) Hx CVA: No Hx Heart Attack/AMI: Yes (08/2012) Hx Congestive Heart Failure: Yes (2007) Hx Diabetes: No Hx Deep Vein Thrombosis: No Hx Pulmonary Embolism: No Hx GERD: No Hx Liver Disease: No Hx Renal Disease: Yes (ESRD/graft right arm /Dialysis on ,W, F) Hx Sickle Cell Disease: No Hx Arthritis: Yes Hx Headaches / Migraines: Yes (with High bld pressure) Hx Seizures: No Hx Kidney Stones: No Hx Psychiatric Treatment: Yes (anxiety) Hx Asthma: No Hx COPD: Yes (2007) Hx Tuberculosis: No Hx Dementia: No Hx HIV: No - Surgical History Past Surgical History?: Yes Hx Coronary Stent: No Hx Open Heart Surgery: No Hx Pacemaker: No Hx Internal Defibrillator: No Hx Cholecystectomy: No Hx Appendectomy: No Hx Breast Surgery: Yes (breast implants) Additional Surgical History: Right subclavian vas cath. tubal ligation and reversal. rt arm dialysis shunt - Family History Family history: renal disease - Social History Smoking Status: Current Every Day Smoker Substance Use Type: Alcohol - Medications Home Medications: Home Medications Medication Instructions Recorded Confirmed Last Taken Type ALPRAZolam [Xanax TAB] 2 mg PO Q8H 09/27/13 12/16/16 07/12/15 History Zolpidem [Ambien] 10 mg PO QHS PRN #14 tablet 07/14/15 12/16/16 Unknown Rx ALBUTEROL Inhaler [ProAir HFA 2 puff IH QID PRN #1 inhalation 08/24/15 12/16/16 Unknown Rx Inhaler] ALBUTEROL NEB's [Proventil 0.083% 2.5 mg IH TID 30 Days 11/05/16 12/16/16 Unknown Rx NEBS] Aspirin [Aspirin TAB] 81 mg PO QDAY #100 tablet 11/05/16 12/16/16 Unknown Rx AtorvaSTATin [Lipitor] 20 mg PO QHS #30 tablet 11/05/16 12/16/16 Unknown Rx Budesoni/Formotero 160-4.5(Nf) 2 puff IH BID 30 Days 11/05/16 12/16/16 Unknown Rx [Symbicort 160-4.5 (Nf)] Carvedilol [Coreg] 25 mg PO BID #60 tablet 11/05/16 12/16/16 Unknown Rx Lisinopril 10 mg PO BID #60 11/05/16 12/16/16 07/12/15 Rx cloNIDine [Catapres] 0.3 mg PO TID #90 tablet 11/05/16 12/16/16 Unknown Rx hydrALAZINE [Apresoline TAB] 50 mg PO Q8HR #90 tablet 11/05/16 12/16/16 Unknown Rx ED Physical Exam - General Limitations: No Limitations General appearance: alert, anxious, cachectic, other - Head Head exam: Present: atraumatic, normocephalic - Eye Eye exam: Present: normal appearance. Absent: scleral icterus, conjunctival injection - ENT ENT exam: Present: mucous membranes dry - Neck Neck exam: Present: normal inspection. Absent: lymphadenopathy - Respiratory Respiratory exam: Present: normal lung sounds bilaterally, other (tachypnea). Absent: respiratory distress - Cardiovascular Cardiovascular Exam: Present: regular rate, normal rhythm, normal heart sounds. Absent: systolic murmur, diastolic murmur, rubs, gallop - GI/Abdominal GI/Abdominal exam: Present: soft, normal bowel sounds. Absent: distended, tenderness - Extremities Exam Extremities exam: Present: normal inspection, pedal edema (peripheral edema) - Back Exam Back exam: Present: normal inspection - Neurological Exam Neurological exam: Present: alert, oriented X3 - Psychiatric Psychiatric exam: Present: normal affect, normal mood - Skin Skin exam: Present: warm, dry, intact, normal color. Absent: rash ED Course Vital Signs 12/16/16 12/16/16 12/16/16 03:12 05:58 06:00 Temperature 99.1 F 98.2 F Pulse Rate 80 72 Respiratory 26 H 16 Rate Blood Pressure 204/103 185/94 Blood Pressure 185/94 [Left] O2 Sat by Pulse 99 99 100 Oximetry 12/16/16 12/16/16 12/16/16 06:16 06:30 06:46 Temperature Pulse Rate 72 71 70 Respiratory 14 13 12 Rate Blood Pressure 181/90 181/90 179/97 Blood Pressure [Left] O2 Sat by Pulse 99 97 97 Oximetry 12/16/16 12/16/16 12/16/16 07:00 07:16 07:30 Temperature Pulse Rate 71 68 73 Respiratory 13 13 10 L Rate Blood Pressure 170/83 170/83 176/95 Blood Pressure [Left] O2 Sat by Pulse 97 97 99 Oximetry ED Medical Decision Making - Lab Data Result diagrams: 12/16/16 03:58 12/16/16 03:58 Laboratory Results - last 24 hr 12/16/16 12/16/16 12/16/16 03:58 03:58 03:58 WBC 7.1 RBC 3.76 Hgb 12.7 Hct 38.4 MCV 102 H MCH 34 H MCHC 33 RDW 14.2 Plt Count 142 Lymph % (Auto) 4.7 L [place] % (Auto) 6.0 Eos % (Auto) 1.0 Baso % (Auto) 0.5 Lymph # 0.3 L [place] # 0.4 Eos # 0.1 Baso # 0.0 Seg Neutrophils % 87.8 H Seg Neutrophils # 6.2 PT 12.4 INR 0.93 APTT 27.5 Sodium 128 L Potassium 5.9 H Chloride 84.7 L Carbon Dioxide 19 L Anion Gap 30 BUN 33 H Creatinine 4.3 H Estimated GFR 11 BUN/Creatinine Ratio 7.67 Glucose 101 H Calcium 7.7 L Troponin T < 0.010 - EKG Data -: EKG Interpreted by Me - EKG Data 12/16/16 07:11 Sinus 79 and normal axis prolonged QTC of [address] segment changes she is early peaking T waves on EKG - Radiology Data Radiology results: image reviewed - Medical Decision Making 51-year-old female with end-stage renal disease here with shortness of breath and tachypnea. On EKG she has early peaking T waves. Her potassium is 5.9. I ordered initial treatment for hyperkalemia and will discuss case with airbrush artist photography. Patient needs to be admitted for her emergent dialysis. She is volume overloaded and has hyperkalemia. Chest x-ray shows volume overload. Plan to discuss case with hospitalist and nephrology. Portions of this chart were dictated with dictation software. There may be dictation errors contained within this note. Discussed case with Dr. Villanueva Discussed case with Hospitalist Critical Care Time: Yes Critical care attestation.: If time is entered above; I have spent that time in minutes in the direct care of this critically ill patient, excluding procedure time. Critical Care Time: 35 ED Disposition Clinical Impression: End stage renal disease on dialysis, Hyperkalemia Disposition: OP ADMIT IP TO THIS HOSP Is pt being admited?: Yes Condition: Serious Referrals: PRIMARY CARE, [Primary Care Provider] - 3-5 Days
--- NOTE | 2016-12-16 07:35 | Admit Criteria Form ---
Admission Criteria Documentation: RENAL FAILURE, CHRONIC Clinical Indications for Admission to Inpatient Care (Place 'X' for any and all applicable criteria): Admission is indicated for 1 or more of the following(1)(2)(3)(4)(5)(6)(7)(8) [X ]I. Inpatient admission required[B] rather than observation care (see Renal Failure, Chronic: Observation Care) because of 1 or more of the following: [ ]a. Hemodynamic instability [ ]b) Uremic symptoms (eg, pericarditis, pleural effusion, nausea, vomiting) too severe for, or not responsive (eg, for over 24 hours) to, emergency department or observation care dialysis or treatment regimen [ ]c) Significant respiratory findings (eg, pulmonary edema) that are severe (eg, Hypoxemia) or persist despite observation care treatment (eg, Tachypnea) [ ]d) Clinically significant metabolic abnormality (eg, acidosis) that is severe or persists despite observation care treatment [X ]e) Clinically significant electrolyte abnormality that requires inpatient care (eg, hyperkalemia with severe ECG findings)[C](14)(15) [ ]f) Hypertension requiring inpatient care (eg, SBP > 220 mm Hg or DBP > 120 mm Hg despite observation care treatment) [ ]g) Urgent treatment of renal failure (eg, dialysis) necessary on inpatient basis (eg, not feasible or appropriate in outpatient or observational care setting) as indicated by 1 or more of the followin) Vascular access not previously established or not useable (eg, treatment-resistant blockage) such that new temporary access is needed that is not appropriate for other than short-term inpatient usage (eg, femoral access until other access established or repaired) 2) Patient new to dialysis and timing of subsequent dialysis (eg, beyond that provided in observation care) unclear such that inpatient monitoring is necessary as patient may need repeat dialysis sooner than is routine [ ]h) Continuous intravenous infusion of anticoagulation, platelet inhibitor, vasoactive, or antiarrhythmic medication [ ] i) Pulmonary artery catheter monitoring [ ]j) Temporary pacemaker placement [ ]k) Emergent pericardiocentesis [ ]l) Other condition, treatment, or monitoring requiring inpatient admission [ ]II. Unexplained syncope [A] [ ]III. Recurrent seizures [ ]IV. Severe infections not treatable in outpatient setting (eg, peritonitis)(9 ) [ ]V. Cardiac arrhythmias of immediate concern [ ]. Encephalopathy (eg. altered mental status that is severe or persistent) [ ]VII.Bleeding abnormalities (eg, platelet dysfunction) with active (eg, gastrointestinal) bleeding Extended stay beyond goal length of stay may be needed for (3)(4)(35)(36): [ ]a) Continuing uremic complications [ ]b) Comorbidities or complications The original [facility] content created by [facility] [email or web address] has been revised. The portions of the content which have been revised are identified through the use of italic text or in bold, and [facility] has neither reviewed nor approved the modified material. All other unmodified content is copyright [facility] [email or web address]. Please see references footnoted in the original [facility]
[2016-12-16] MEDS ORDERED: CALCIUM GLUCONATE 1,000 MG in NACL 0.9% 100 ML IV ONE (08:00)
[2016-12-16] MEDS ORDERED: SODIUM BICARBONATE 150 MEQ in D5W 1,000 ML IV ONE (08:00)
[2016-12-16] MEDS ORDERED: PROVENTIL IH PRN (08:01)
[2016-12-16] MEDS ORDERED: MORPHINE IV PRN (08:01)
[2016-12-16] MEDS ORDERED: TYLENOL PO PRN (08:01)
[2016-12-16] MEDS ORDERED: ZOFRAN IV PRN (08:10)
[2016-12-16] MEDS ORDERED: APRESOLINE IV PRN ×2 (08:39→08:48)
--- NOTE | 2016-12-16 09:20 | XRay Report ---
PORTABLE CHEST INDICATION: Chest pain, shortness of breath. On dialysis. COMPARISON: 11/04/2016 FINDINGS: Portable, frontal chest radiograph demonstrates stable cardiomediastinal silhouette/slight cardiomegaly, aortic knob calcifications and demineralized bones. Slight bibasilar haziness, in part related to overlying breast implant shadows. Minimal right pleural effusion though now suspected. No cephalization. EKG leads. CONCLUSION: Minimal right pleural effusion now not excluded with various other stable findings, as above. Please correlate. Thank you for the opportunity to participate in this patient's care.
[2016-12-16] MEDS: DUONEB *Not for PRN Use IH SCH ×2 (09:30→14:40)
[2016-12-16] MEDS ORDERED: CATAPRES ONE ×2 (09:45)
[2016-12-16] MEDS: COREG PO SCH ×2 (09:46→21:28)
[2016-12-16] MEDS: APRESOLINE PO SCH ×3 (09:46→21:25)
[2016-12-16] MEDS: ASPIRIN PO SCH (09:46)
[2016-12-16] MEDS: CATAPRES PO SCH ×3 (09:47→21:28)
[2016-12-16] MEDS ORDERED: HEPARIN SUB-Q SCH (10:00)
[2016-12-16] MEDS ORDERED: DULCOLAX PR PRN (10:00)
[2016-12-16] MEDS ORDERED: NON-FORMULARY (Lisinopril 10 MG) PO SCH (10:00)
--- NOTE | 2016-12-16 10:08 | Progress Note ---
Hospitalist Physical - Constitutional Vitals: Temp Pulse Resp BP Pulse Ox 98.2 F 70 18 176/95 99 12/16/16 06:00 12/16/16 09:40 12/16/16 09:40 12/16/16 07:30 12/16/16 07:30 Results - Labs CBC & Chem 7: 12/16/16 03:58 12/16/16 03:58 Labs: Laboratory Last Values WBC 7.1 K/mm3 (4.5-11.0) 12/16/16 03:58 RBC 3.76 M/mm3 (3.65-5.03) 12/16/16 03:58 Hgb 12.7 gm/dl (10.1-14.3) 12/16/16 03:58 Hct 38.4 % (30.3-42.9) 12/16/16 03:58 MCV 102 fl (79-97) H 12/16/16 03:58 MCH 34 pg (28-32) H 12/16/16 03:58 MCHC 33 % (30-34) 12/16/16 03:58 RDW 14.2 % (13.2-15.2) 12/16/16 03:58 Plt Count 142 K/mm3 (140-440) 12/16/16 03:58 Lymph % (Auto) 4.7 % (13.4-35.0) L 12/16/16 03:58 Webb % (Auto) 6.0 % (0.0-7.3) 12/16/16 03:58 Eos % (Auto) 1.0 % (0.0-4.3) 12/16/16 03:58 Baso % (Auto) 0.5 % (0.0-1.8) 12/16/16 03:58 Lymph # 0.3 K/mm3 (1.2-5.4) L 12/16/16 03:58 Webb # 0.4 K/mm3 (0.0-0.8) 12/16/16 03:58 Eos # 0.1 K/mm3 (0.0-0.4) 12/16/16 03:58 Baso # 0.0 K/mm3 (0.0-0.1) 12/16/16 03:58 Seg Neutrophils % 87.8 % (40.0-70.0) H 12/16/16 03:58 Seg Neutrophils # 6.2 K/mm3 (1.8-7.7) 12/16/16 03:58 PT 12.4 Sec. (12.2-14.9) 12/16/16 03:58 INR 0.93 (0.87-1.13) 12/16/16 03:58 APTT 27.5 Sec. (24.2-36.6) 12/16/16 03:58 Sodium 128 mmol/L (137-145) L 12/16/16 03:58 Potassium 5.9 mmol/L (3.6-5.0) H 12/16/16 03:58 Chloride 84.7 mmol/L (98-107) L 12/16/16 03:58 Carbon Dioxide 19 mmol/L (22-30) L 12/16/16 03:58 Anion Gap 30 mmol/L 12/16/16 03:58 BUN 33 mg/dL (7-17) H 12/16/16 03:58 Creatinine 4.3 mg/dL (0.7-1.2) H 12/16/16 03:58 Estimated GFR 11 ml/min 12/16/16 03:58 BUN/Creatinine Ratio 7.67 % 12/16/16 03:58 Glucose 101 mg/dL (65-100) H 12/16/16 03:58 Calcium 7.7 mg/dL (8.4-10.2) L 12/16/16 03:58 Troponin T < 0.010 ng/mL (0.00-0.029) 12/16/16 09:17
[2016-12-16] MEDS ORDERED: PROCRIT IV PRN (10:10)
[2016-12-16] MEDS ORDERED: NACL 0.9% 100 ML IV PRN (10:10)
--- NOTE | 2016-12-16 11:47 | History and Physical Report ---
History of Present Illness Date of examination: 10/15/16 Date of admission: 12/16/16 08:01 Chief complaint: Shortness of breath and right side chest pain History of present illness: The patient is a 51-year-old white female with past medical history of diabetes , CAD with stent placement on 2013, COPD, end-stage renal disease on dialysis, who presents for evaluation of dyspnea for about a week. The patient states that for about a week she was experiencing exertional dyspnea and orthopnea. Her symptom became severe and constant, since 10 PM last night. She states that her dyspnea was associated with worsened orthopnea from baseline. She has also experienced mild to moderate aching chest pain with cough which is non productive. The patient denies fever, chills, night sweats or hemoptysis. In the ER initial work up showed hyperkalemia and chest x-ray did not show any acute abnormality. Cardiac enzymes negative without any specific ST changes on EKG. The patient has a history of COPD and is on 3 L oxygen dependent at home. Patient is a tobacco smoker up until a few days ago. She denies any illicit drug use.Patient has dialysis on Monday, Monday and Monday. The patient has a right arm fistula. She had dialysis on Monday but did not finish secondary hypotension. Past History Past Medical History: CAD, ESRD ( [place] and one stent, anxiety,), heart failure, hypertension Past Surgical History: No surgical history Social history: Lives alone, smoking. denies: alcohol abuse, prescription drug abuse Family history: CAD, hypertension Medications and Allergies Allergies Allergy/AdvReac Type Severity Reaction Status Date / Time Heparin Analogues Allergy Severe Shortness Verified 04/06/15 12:37 of Breath codeine Allergy Rash Verified 04/06/15 12:37 hydrocodone Allergy Nausea Verified 04/06/15 12:37 latex Allergy Hives Verified 04/06/15 12:37 Home Medications Medication Instructions Recorded Confirmed Last Taken Type ALPRAZolam [Xanax TAB] 2 mg PO Q8H 09/27/13 12/16/16 07/12/15 History Zolpidem [Ambien] 10 mg PO QHS PRN #14 tablet 07/14/15 12/16/16 Unknown Rx ALBUTEROL NEB's [Proventil 0.083% 2.5 mg IH TID 30 Days 11/05/16 12/16/16 Unknown Rx NEBS] Aspirin [Aspirin TAB] 81 mg PO QDAY #100 tablet 11/05/16 12/16/16 Unknown Rx AtorvaSTATin [Lipitor] 20 mg PO QHS #30 tablet 11/05/16 12/16/16 Unknown Rx Carvedilol [Coreg] 25 mg PO BID #60 tablet 11/05/16 12/16/16 Unknown Rx cloNIDine [Catapres] 0.3 mg PO TID #90 tablet 11/05/16 12/16/16 Unknown Rx hydrALAZINE [Apresoline TAB] 50 mg PO Q8HR #90 tablet 11/05/16 12/16/16 Unknown Rx ALBUTEROL Inhaler [ProAir HFA 2 puff IH QID PRN #1 inhalation 12/17/16 Unknown Rx Inhaler] Azithromycin [Zithromax TAB] 500 mg PO QDAY #7 tablet 12/17/16 Unknown Rx Budesoni/Formotero 160-4.5(Nf) 2 puff IH BID 30 Days 12/17/16 Unknown Rx [Symbicort 160-4.5 (Nf)] ISOSORBIDE MONOnitrate [Imdur ER] 30 mg PO QDAY #30 tablet 12/17/16 Unknown Rx predniSONE [Deltasone] 10 mg PO .TAPER #48 tab 12/17/16 Unknown Rx Active Meds: Active Medications Acetaminophen (Tylenol) 650 mg PO Q4H PRN PRN Reason: Pain MILD(1-3)/Fever >100.5/SNELL Albuterol (Proventil) 2.5 mg IH Q4HRT PRN PRN Reason: Shortness Of Breath Albuterol/Ipratropium (Duoneb *Not For Prn Use*) 1 ampul IH Q6HRT [facility] Last Admin: 12/16/16 09:30 Dose: 1 ampul Aspirin (Aspirin) 81 mg PO QDAY [facility] Last Admin: 12/16/16 09:46 Dose: 81 mg Atorvastatin Calcium (Lipitor) 20 mg PO QHS [facility] Bisacodyl (Dulcolax) 10 mg ID QDAY PRN PRN Reason: Constipation unrelieved by MOM Carvedilol (Coreg) 25 mg PO BID [facility] Last Admin: 12/16/16 09:46 Dose: 25 mg Clonidine HCl (Catapres) 0.3 mg PO TID [facility] Last Admin: 12/16/16 09:47 Dose: 0.3 mg Epoetin Jaiden (Procrit) 6,000 unit IV JAVON PRN PRN Reason: hemodialysis Hydralazine HCl (Apresoline) 50 mg PO Q8HR [facility] Last Admin: 12/16/16 09:46 Dose: 50 mg Hydralazine HCl (Apresoline) 10 mg IV Q4HR PRN PRN Reason: BP >160/100 Sodium Bicarbonate 150 meq/ (Dextrose) 1,150 mls @ 75 mls/hr IV ONCE.ED ONE Stop: 12/16/16 23:19 Last Admin: 12/16/16 08:31 Dose: 75 mls/hr Sodium Chloride (Nacl 0.9%) 100 mls @ 999 mls/hr IV JAVON PRN PRN Reason: Hypotension Morphine Sulfate (Morphine) 2 mg IV Q4H PRN PRN Reason: Pain, Moderate (7-10) Ondansetron HCl (Zofran) 4 mg IV Q4H PRN PRN Reason: Nausea And Vomiting Zolpidem Tartrate (Ambien) 10 mg PO QHS PRN PRN Reason: Insomnia Review of Systems Constitutional: no weight loss, no weight gain, no chills, no sweats Ears, nose, mouth and throat: no ear pain, no ear discharge, no tinnitis, no decreased hearing, no nose pain Breasts: no change in shape, no swelling Cardiovascular: shortness of breath, dyspnea on exertion, no orthopnea, no palpitations, no rapid/irregular heart beat Respiratory: cough, shortness of breath, dyspnea on exertion, congestion, no cough with sputum, no excessive sputum, no hemoptysis Gastrointestinal: nausea, no vomiting, no diarrhea Genitourinary Female: no dysmenorrhea, no pelvic pain, no flank pain, no menorrhagia, no dysuria, no urinary frequency, no urgency Menstruation: no premenarcheal, no post hysterectomy, no ammenorrhea Rectal: no incontinence, no bleeding Musculoskeletal: no neck pain, no shooting arm pain, no arm numbness/tingling Integumentary: no sores, no wounds, no jaundice Neurological: no weakness, no parathesias, no numbness, no tingling, no seizures Psychiatric: anxiety, no change in sleep habits, no sleep disturbances, no insomnia Endocrine: no polyphagia, no excessive thirst, no polydipsia, no polyuria Hematologic/Lymphatic: no easy bruising, no easy bleeding Allergic/Immunologic: no urticaria, no allergic rhinitis Exam - Constitutional Vitals: Temp Pulse Resp BP Pulse Ox 98.2 F 71 11 L 127/67 98 12/16/16 06:00 12/16/16 10:30 12/16/16 10:30 12/16/16 10:30 12/16/16 10:30 General appearance: Present: mild distress - EENT Eyes: Present: PERRL ENT: hearing intact - Neck Neck: Present: supple - Respiratory Respiratory effort: normal Respiratory: bilateral: diminished, rales - Cardiovascular Rhythm: regular Heart Sounds: Present: S1 & S2 - Extremities Extremities: no ischemia Peripheral Pulses: within normal limits - Abdominal General gastrointestinal: Present: soft, non-tender Female genitourinary: Present: deferred - Rectal Rectal Exam: deferred - Integumentary Integumentary: Present: clear, warm, dry - Musculoskeletal Musculoskeletal: strength equal bilaterally - Psychiatric Psychiatric: appropriate mood/affect - Neurologic Neurologic: CNII-XII intact - Allied Health Allied health notes reviewed: nursing Results - Labs CBC & Chem 7: 12/17/16 04:42 12/17/16 04:42 Labs: Laboratory Last Values WBC 7.1 K/mm3 (4.5-11.0) 12/16/16 03:58 RBC 3.76 M/mm3 (3.65-5.03) 12/16/16 03:58 Hgb 12.7 gm/dl (10.1-14.3) 12/16/16 03:58 Hct 38.4 % (30.3-42.9) 12/16/16 03:58 MCV 102 fl (79-97) H 12/16/16 03:58 MCH 34 pg (28-32) H 12/16/16 03:58 MCHC 33 % (30-34) 12/16/16 03:58 RDW 14.2 % (13.2-15.2) 12/16/16 03:58 Plt Count 142 K/mm3 (140-440) 12/16/16 03:58 Lymph % (Auto) 4.7 % (13.4-35.0) L 12/16/16 03:58 Pender % (Auto) 6.0 % (0.0-7.3) 12/16/16 03:58 Eos % (Auto) 1.0 % (0.0-4.3) 12/16/16 03:58 Baso % (Auto) 0.5 % (0.0-1.8) 12/16/16 03:58 Lymph # 0.3 K/mm3 (1.2-5.4) L 12/16/16 03:58 Pender # 0.4 K/mm3 (0.0-0.8) 12/16/16 03:58 Eos # 0.1 K/mm3 (0.0-0.4) 12/16/16 03:58 Baso # 0.0 K/mm3 (0.0-0.1) 12/16/16 03:58 Seg Neutrophils % 87.8 % (40.0-70.0) H 12/16/16 03:58 Seg Neutrophils # 6.2 K/mm3 (1.8-7.7) 12/16/16 03:58 PT 12.4 Sec. (12.2-14.9) 12/16/16 03:58 INR 0.93 (0.87-1.13) 12/16/16 03:58 APTT 27.5 Sec. (24.2-36.6) 12/16/16 03:58 Sodium 128 mmol/L (137-145) L 12/16/16 03:58 Potassium 5.9 mmol/L (3.6-5.0) H 12/16/16 03:58 Chloride 84.7 mmol/L (98-107) L 12/16/16 03:58 Carbon Dioxide 19 mmol/L (22-30) L 12/16/16 03:58 Anion Gap 30 mmol/L 12/16/16 03:58 BUN 33 mg/dL (7-17) H 12/16/16 03:58 Creatinine 4.3 mg/dL (0.7-1.2) H 12/16/16 03:58 Estimated GFR 11 ml/min 12/16/16 03:58 BUN/Creatinine Ratio 7.67 % 12/16/16 03:58 Glucose 101 mg/dL (65-100) H 12/16/16 03:58 Calcium 7.7 mg/dL (8.4-10.2) L 12/16/16 03:58 Troponin T < 0.010 ng/mL (0.00-0.029) 12/16/16 09:17 - Imaging and Cardiology Abdominal x-ray: image reviewed Assessment and Plan Assessment and plan: The patient is a 51-year-old white female with past medical history of diabetes , CAD with stent placement on 2013, COPD, end-stage renal disease on dialysis, who presents for evaluation of dyspnea for about a week. The patient states that for about a week she was experiencing exertional dyspnea and orthopnea. Assessment/ Plan Acute on Chronic respiratory failure patient has a history of COPD and is on 3 L oxygen dependent at home Oxygen supplements Nebulizer/inhaler Pulmonology consult Supportive care Acute on chronic Diastolic Congestive heart failure strict I/O's and daily weights No sodium/cardiac diet, fluid restriction 2600 mL in 24 hours Closely monitor electrolytes Cardiology evaluation. Chest Pain We will admit to telemetry floor. EKG normal sinus rate [address] elevation or T-wave inversion. Negative cardiac enzyme X2 Start on aspirin Nitroglycerin when necessary Morphine ordered for pain Stress test ordered. Cardiology evaluation COPD Oxygen supplements Nebulizer/inhaler Pulmonology consult Supportive care Hyperkalemia Insulin, calcium gluconate and dextrose with given in the emergency department Emergent hemodialysis today that will correct it Hypertension urgency Resume home antihypertensive medications IV hydralazine for SBP >160 Closely monitor BP ESRD on hemodialysis Patient on hemodialysis Neurologist Consult Hyponatremia Most likely will due to fluid dilution Hemodialysis today that will correct it Closely monitor electrolytes GERD Strate on Protonix NM gastric emptying ordered DVT prophylaxis Lovenox Advance Directives: Yes VTE prophylaxis?: Chemical Contraindication Mechanical VTE Prophylaxis: Treatment Not Indicated Plan of care discussed with patient/family: Yes
--- NOTE | 2016-12-16 15:05 | Consultation ---
History of Present Illness Consult date: 12/16/16 Requesting physician: DIYA SINGH Reason for consult: COPD History of present illness: [address] Aranda for COPD. Admitted with worsening SOB, wheezing, dry cough, R anterior chest pain over sternum. No fevers, chills, hemoptysis. On home O2. Still smoking. Active Medications Acetaminophen (Tylenol) 650 mg PO Q4H PRN PRN Reason: Pain MILD(1-3)/Fever >100.5/SNELL Albuterol (Proventil) 2.5 mg IH Q4HRT PRN PRN Reason: Shortness Of Breath Albuterol/Ipratropium (Duoneb *Not For Prn Use*) 1 ampul IH Q6HRT [facility] Last Admin: 12/16/16 14:40 Dose: 1 ampul Arformoterol Tartrate (Brovana Nebu) 15 mcg IH Q12HRT [facility] Aspirin (Aspirin) 81 mg PO QDAY [facility] Last Admin: 12/16/16 09:46 Dose: 81 mg Atorvastatin Calcium (Lipitor) 20 mg PO QHS [facility] Azithromycin (Zithromax) 500 mg PO QDAY [facility] Bisacodyl (Dulcolax) 10 mg CA QDAY PRN PRN Reason: Constipation unrelieved by MOM Budesonide (Pulmicort) 0.5 mg IH Q12HRT [facility] Carvedilol (Coreg) 25 mg PO BID [facility] Last Admin: 12/16/16 09:46 Dose: 25 mg Clonidine HCl (Catapres) 0.3 mg PO TID [facility] Last Admin: 12/16/16 09:47 Dose: 0.3 mg Epoetin Jaiden (Procrit) 6,000 unit IV JAVON PRN PRN Reason: hemodialysis Hydralazine HCl (Apresoline) 50 mg PO Q8HR [facility] Last Admin: 12/16/16 09:46 Dose: 50 mg Hydralazine HCl (Apresoline) 10 mg IV Q4HR PRN PRN Reason: BP >160/100 Sodium Bicarbonate 150 meq/ (Dextrose) 1,150 mls @ 75 mls/hr IV ONCE.ED ONE Stop: 12/16/16 23:19 Last Admin: 12/16/16 08:31 Dose: 75 mls/hr Sodium Chloride (Nacl 0.9%) 100 mls @ 999 mls/hr IV JAVON PRN PRN Reason: Hypotension Methylprednisolone Sodium Succinate (Solu-Medrol) 40 mg IV Q8HR AN[facility] Morphine Sulfate (Morphine) 2 mg IV Q4H PRN PRN Reason: Pain, Moderate (7-10) Ondansetron HCl (Zofran) 4 mg IV Q4H PRN PRN Reason: Nausea And Vomiting Pantoprazole Sodium (Protonix) 40 mg IV DAILY [facility] Zolpidem Tartrate (Ambien) 10 mg PO QHS PRN PRN Reason: Insomnia Past History Past Medical History: CAD, ESRD ( [place] and one stent, anxiety,), heart failure, hypertension Past Surgical History: No surgical history Social history: Lives alone, smoking. denies: alcohol abuse, prescription drug abuse Family history: CAD, hypertension Medications and Allergies Allergies Allergy/AdvReac Type Severity Reaction Status Date / Time Heparin Analogues Allergy Severe Shortness Verified 04/06/15 12:37 of Breath codeine Allergy Rash Verified 04/06/15 12:37 hydrocodone Allergy Nausea Verified 04/06/15 12:37 latex Allergy Hives Verified 04/06/15 12:37 Home Medications Medication Instructions Recorded Confirmed Last Taken Type ALPRAZolam [Xanax TAB] 2 mg PO Q8H 09/27/13 12/16/16 07/12/15 History Zolpidem [Ambien] 10 mg PO QHS PRN #14 tablet 07/14/15 12/16/16 Unknown Rx ALBUTEROL Inhaler [ProAir HFA 2 puff IH QID PRN #1 inhalation 08/24/15 12/16/16 Unknown Rx Inhaler] ALBUTEROL NEB's [Proventil 0.083% 2.5 mg IH TID 30 Days 11/05/16 12/16/16 Unknown Rx NEBS] Aspirin [Aspirin TAB] 81 mg PO QDAY #100 tablet 11/05/16 12/16/16 Unknown Rx AtorvaSTATin [Lipitor] 20 mg PO QHS #30 tablet 11/05/16 12/16/16 Unknown Rx Budesoni/Formotero 160-4.5(Nf) 2 puff IH BID 30 Days 11/05/16 12/16/16 Unknown Rx [Symbicort 160-4.5 (Nf)] Carvedilol [Coreg] 25 mg PO BID #60 tablet 11/05/16 12/16/16 Unknown Rx Lisinopril 10 mg PO BID #60 11/05/16 12/16/16 07/12/15 Rx cloNIDine [Catapres] 0.3 mg PO TID #90 tablet 11/05/16 12/16/16 Unknown Rx hydrALAZINE [Apresoline TAB] 50 mg PO Q8HR #90 tablet 11/05/16 12/16/16 Unknown Rx Active Meds: Active Medications Acetaminophen (Tylenol) 650 mg PO Q4H PRN PRN Reason: Pain MILD(1-3)/Fever >100.5/SNELL Albuterol (Proventil) 2.5 mg IH Q4HRT PRN PRN Reason: Shortness Of Breath Albuterol/Ipratropium (Duoneb *Not For Prn Use*) 1 ampul IH Q6HRT [facility] Last Admin: 12/16/16 14:40 Dose: 1 ampul Arformoterol Tartrate (Brovana Nebu) 15 mcg IH Q12HRT [facility] Aspirin (Aspirin) 81 mg PO QDAY [facility] Last Admin: 12/16/16 09:46 Dose: 81 mg Atorvastatin Calcium (Lipitor) 20 mg PO QHS [facility] Azithromycin (Zithromax) 500 mg PO QDAY [facility] Bisacodyl (Dulcolax) 10 mg CA QDAY PRN PRN Reason: Constipation unrelieved by MOM Budesonide (Pulmicort) 0.5 mg IH Q12HRT [facility] Carvedilol (Coreg) 25 mg PO BID [facility] Last Admin: 12/16/16 09:46 Dose: 25 mg Clonidine HCl (Catapres) 0.3 mg PO TID [facility] Last Admin: 12/16/16 09:47 Dose: 0.3 mg Epoetin Jaiden (Procrit) 6,000 unit IV JAVON PRN PRN Reason: hemodialysis Hydralazine HCl (Apresoline) 50 mg PO Q8HR [facility] Last Admin: 12/16/16 09:46 Dose: 50 mg Hydralazine HCl (Apresoline) 10 mg IV Q4HR PRN PRN Reason: BP >160/100 Sodium Bicarbonate 150 meq/ (Dextrose) 1,150 mls @ 75 mls/hr IV ONCE.ED ONE Stop: 12/16/16 23:19 Last Admin: 12/16/16 08:31 Dose: 75 mls/hr Sodium Chloride (Nacl 0.9%) 100 mls @ 999 mls/hr IV JAVON PRN PRN Reason: Hypotension Methylprednisolone Sodium Succinate (Solu-Medrol) 40 mg IV Q8HR [facility] Morphine Sulfate (Morphine) 2 mg IV Q4H PRN PRN Reason: Pain, Moderate (7-10) Ondansetron HCl (Zofran) 4 mg IV Q4H PRN PRN Reason: Nausea And Vomiting Pantoprazole Sodium (Protonix) 40 mg IV DAILY [facility] Zolpidem Tartrate (Ambien) 10 mg PO QHS PRN PRN Reason: Insomnia Review of Systems All systems: negative Physical Examination Vital signs: Vital Signs Temp Pulse Resp BP Pulse Ox 99.1 F 80 26 H 204/103 99 12/16/16 03:12 12/16/16 03:12 12/16/16 03:12 12/16/16 03:12 12/16/16 03:12 General appearance: no acute distress, alert, other (cachectic) Eyes: non-icteric ENT: oropharynx moist Neck: supple Effort: mildly labored Ascultation: Bilateral: diminished breath sounds, wheezes (bilateral expiratory) Cardiovascular: regular rate and rhythm (no mrg) Gastrointestinal: normoactive bowel sounds, soft, non-tender, non-distended Integumentary: normal Extremities: no cyanosis, pink and warm, edema (trace pedal edema bilaterally) Musculoskeletal: no deformities normal mental status, non-focal exam, pupils equal and round, CN II-XII normal mood appropriate, affect normal Results - Laboratory Findings CBC and BMP: 12/16/16 03:58 12/16/16 03:58 PT/INR, D-dimer PT 12.4 Sec. (12.2-14.9) 12/16/16 03:58 INR 0.93 (0.87-1.13) 12/16/16 03:58 - Diagnostic Findings Chest x-ray: report reviewed, image reviewed (severe hyperinflation, not appreciably change from prior films in my opinion) Assessment and Plan Imp: 1. Centrilobular emphysema, likely severe 2. COPD exac. 3. A/C respiratory failure, hypoxia 4. Chronic hypercapneic respiratory failure 5. Chronic nicotine dependence, cigarettes 6. ESRD 7. Chronic diastolic CHF 8. Atypical CP 9. Hyperkalemia Rec: 1. Going for HD now 2. Patient tight on exam -> IV Solumedrol, Zithromax PO, Duonebs 3. Takes Symbicort at home -> pulmicort/brovana while in hospital 4. Stop smoking, to be counseled further 5. ABG 6. F/u cards consult 7. SCDs given hx of HIT Plan of care reviewed w/ patient, she understands/agrees Thanks kindly for the consult. Will follow.
--- NOTE | 2016-12-16 16:00 | Consultation ---
History of Present Illness Consult date: 12/16/16 Requesting physician: EDDY CASTRO Consult reason: chest pain History of present illness: The patient is a 51 year old female with a history of CAD s/p PCI, heart failure , cardiomyopathy, HTN, COPD, chronic respiratory failure, ESRD on HD, anxiety and tobacco use who presented with complaints of chest pain, anxiety, and high BP over the past 2 days. She describes her chest pain as an intermittent sharp pain, sometimes left sided, sometimes right sided. Pain last for approximately 15 seconds and resolves on its own. The pain was associated with SOB, LOMBARDO, and palpitations. She denies any n/v, diaphoresis, dizziness or syncope. Following admission, pt was found to have hyperkalemia with serum K+ 5.9 for which she is currently undergoing emergent HD. BP on arrival was 204/103. Cardiac enzymes are negative x 3 sets. On evaluation, pt denies any complaints. Of note, echo done 07/2015 showed mild to moderate LVH, EF 55-60%, impaired relaxation, mild TR. She underwent LHC and PCI of LCX with BMS in 06/2013. Cath revealed left main patent, RCA patent (severe tortuosity), LAD with mild ectasia in the midportion, 90% ostial diagonal (medical management). Repeat cath in [place] in 01/2015 with attempted PCI of 2nd dx branch, not able to pass wire because of tortuosity. Past History Past Medical History: CAD (PCI), dialysis, ESRD ( [place] and one stent, anxiety,), heart failure, hypertension Past Surgical History: No surgical history Social history: Lives alone, smoking. denies: alcohol abuse, prescription drug abuse Family history: CAD, hypertension Medications and Allergies Allergies Allergy/AdvReac Type Severity Reaction Status Date / Time Heparin Analogues Allergy Severe Shortness Verified 04/06/15 12:37 of Breath codeine Allergy Rash Verified 04/06/15 12:37 hydrocodone Allergy Nausea Verified 04/06/15 12:37 latex Allergy Hives Verified 04/06/15 12:37 Home Medications Medication Instructions Recorded Confirmed Last Taken Type ALPRAZolam [Xanax TAB] 2 mg PO Q8H 09/27/13 12/16/16 07/12/15 History Zolpidem [Ambien] 10 mg PO QHS PRN #14 tablet 07/14/15 12/16/16 Unknown Rx ALBUTEROL Inhaler [ProAir HFA 2 puff IH QID PRN #1 inhalation 08/24/15 12/16/16 Unknown Rx Inhaler] ALBUTEROL NEB's [Proventil 0.083% 2.5 mg IH TID 30 Days 11/05/16 12/16/16 Unknown Rx NEBS] Aspirin [Aspirin TAB] 81 mg PO QDAY #100 tablet 11/05/16 12/16/16 Unknown Rx AtorvaSTATin [Lipitor] 20 mg PO QHS #30 tablet 11/05/16 12/16/16 Unknown Rx Budesoni/Formotero 160-4.5(Nf) 2 puff IH BID 30 Days 11/05/16 12/16/16 Unknown Rx [Symbicort 160-4.5 (Nf)] Carvedilol [Coreg] 25 mg PO BID #60 tablet 11/05/16 12/16/16 Unknown Rx Lisinopril 10 mg PO BID #60 11/05/16 12/16/16 07/12/15 Rx cloNIDine [Catapres] 0.3 mg PO TID #90 tablet 11/05/16 12/16/16 Unknown Rx hydrALAZINE [Apresoline TAB] 50 mg PO Q8HR #90 tablet 11/05/16 12/16/16 Unknown Rx Active Meds: Active Medications Acetaminophen (Tylenol) 650 mg PO Q4H PRN PRN Reason: Pain MILD(1-3)/Fever >100.5/SNELL Albuterol (Proventil) 2.5 mg IH Q4HRT PRN PRN Reason: Shortness Of Breath Albuterol/Ipratropium (Duoneb *Not For Prn Use*) 1 ampul IH Q6HRT [facility] Last Admin: 12/16/16 14:40 Dose: 1 ampul Arformoterol Tartrate (Brovana Nebu) 15 mcg IH Q12HRT [facility] Aspirin (Aspirin) 81 mg PO QDAY [facility] Last Admin: 12/16/16 09:46 Dose: 81 mg Atorvastatin Calcium (Lipitor) 20 mg PO QHS [facility] Azithromycin (Zithromax) 500 mg PO QDAY [facility] Bisacodyl (Dulcolax) 10 mg [place] QDAY PRN PRN Reason: Constipation unrelieved by MOM Budesonide (Pulmicort) 0.5 mg IH Q12HRT [facility] Carvedilol (Coreg) 25 mg PO BID [facility] Last Admin: 12/16/16 09:46 Dose: 25 mg Clonidine HCl (Catapres) 0.3 mg PO TID [facility] Last Admin: 12/16/16 09:47 Dose: 0.3 mg Epoetin Jaiden (Procrit) 6,000 unit IV JAVON PRN PRN Reason: hemodialysis Hydralazine HCl (Apresoline) 50 mg PO Q8HR [facility] Last Admin: 12/16/16 09:46 Dose: 50 mg Hydralazine HCl (Apresoline) 10 mg IV Q4HR PRN PRN Reason: BP >160/100 Sodium Bicarbonate 150 meq/ (Dextrose) 1,150 mls @ 75 mls/hr IV ONCE.ED ONE Stop: 12/16/16 23:19 Last Admin: 12/16/16 08:31 Dose: 75 mls/hr Sodium Chloride (Nacl 0.9%) 100 mls @ 999 mls/hr IV JAVON PRN PRN Reason: Hypotension Methylprednisolone Sodium Succinate (Solu-Medrol) 40 mg IV Q8HR [facility] Morphine Sulfate (Morphine) 2 mg IV Q4H PRN PRN Reason: Pain, Moderate (7-10) Ondansetron HCl (Zofran) 4 mg IV Q4H PRN PRN Reason: Nausea And Vomiting Pantoprazole Sodium (Protonix) 40 mg PO DAILY [facility] Zolpidem Tartrate (Ambien) 10 mg PO QHS PRN PRN Reason: Insomnia Review of Systems Constitutional: no weight loss, no weight gain, no fever, no chills, no sweats Ears, nose, mouth and throat: no ear pain, no nose pain, no sinus pressure, no sinus pain Cardiovascular: chest pain, palpitations, shortness of breath, dyspnea on exertion, high blood pressure, no orthopnea, no rapid/irregular heart beat, no edema, no syncope, no lightheadedness, no paroxysmal nocturnal dyspnea, no leg edema Respiratory: shortness of breath, dyspnea on exertion, no cough, no congestion, no wheezing, no pain on inspiration Gastrointestinal: no abdominal pain, no nausea, no vomiting, no diarrhea, no constipation, no change in bowel habits Genitourinary Female: no pelvic pain, no flank pain, no dysuria, no urinary frequency, no urgency Musculoskeletal: no neck stiffness, no neck pain, no shooting arm pain, no arm numbness/tingling, no low back pain, no shooting leg pain, no leg numbness/ tingling, no redness of joints Integumentary: no rash, no pruritis, no redness, no sores, no wounds Neurological: no head injury, no paralysis, no weakness, no parathesias, no numbness, no tingling, no seizures, no syncope Psychiatric: anxiety, anxiety attacks Endocrine: no cold intolerance, no heat intolerance Hematologic/Lymphatic: no easy bruising, no easy bleeding, no lymphadenopathy Allergic/Immunologic: no urticaria, no wheezing, no persistent infections Physical Examination Vital Signs Temp Pulse Resp BP Pulse Ox 99.1 F 80 26 H 204/103 99 12/16/16 03:12 12/16/16 03:12 12/16/16 03:12 12/16/16 03:12 12/16/16 03:12 General appearance: no acute distress HEENT: Positive: PERRL, Normocephaly, Mucus Membranes Moist Neck: Positive: neck supple, trachea midline Cardiac: Positive: Reg Rate and Rhythm, S1/S2, Systolic Murmur Lungs: Positive: clear to auscultation Neuro: Positive: Grossly Intact Abdomen: Positive: Soft, Active Bowel Sounds. Negative: Tender Skin: Positive: Clear. Negative: Rash, Wound Musculoskeletal: No Fluid Collection, No Pain, Normal Range of Motion Extremities: Absent: edema Results 12/16/16 03:58 12/16/16 03:58 - Imaging and Cardiology Echo: pending, report reviewed (07/2015 showed mild to moderate LVH, EF 55-60%, impaired relaxation, mild TR. ) Cardiac cath: report reviewed (LHC and PCI of LCX with BMS in 06/2013) EKG: image reviewed EKG interpretations - Telemetry EKG Rhythm: Sinus Rhythm - EKG Sinus rhythms and dysrhythmias: sinus rhythm Repolarization changes or abnormalities: Suggestive of hyperkalemia Assessment and Plan Assessment: Chest pain, atypical - currently resolved; ECG with no ischemic changes; troponins negative for AMI x 3 sets Hypertensive urgency - improved ESRD on HD Hyperkalemia Hyponatremia COPD Chronic respiratory failure - wears 3L O2 via NC at all times Tobacco use - cessation encouraged Anxiety Plan: F/u echo. Electrolyte management per HD. Repeat BMP and Mg in AM. Cont present cardiac regimen. Cont telemetry. Assessment and plan reviewed with pt at bedside. The patient has been seen in conjunction with Dr. Schroeder who agrees with the assessment and plan of care.
[2016-12-16] MEDS ORDERED: XANAX ONE (16:18)
[2016-12-16] MEDS: ZITHROMAX PO SCH (19:37)
--- NOTE | 2016-12-16 20:00 | Consultation ---
History of Present Illness - Reason for Consult Consult date: 12/16/16 end stage renal disease, hyperkalemia Requesting physician: DIYA SINGH - History of Present Illness This is a 51 year old female with PMH of ESRD on HD, CAD s/p PCI, hypertension, COPD, cardiomyopathy, anxiety, tobacco use, heparin allergy, and abdominal aortic aneurysm (diagnosed last year per patient) who presented to [facility] ([facility]) with complaints of right sided chest pain, shortness of breath, fatigue, weakness, chills, and elevated blood pressure. On admission, found to be hyperkalemic (K+ 5.9), s/p Hemodialysis today. Cardiology consulted for chest pain. We were consulted to evaluate this patient who has ESRD and requires HD and renal management. This patient undergoes outpatient HD at [facility] every Monday, Monday, and Monday. Last HD treatment was 12/14/16. Patient seen in the Hemodialysis unit. Past History Past Medical History: CAD (PCI), dialysis, ESRD ( [place] and one stent, anxiety,), heart failure, hypertension Past Surgical History: No surgical history Social history: Lives alone, smoking. denies: alcohol abuse, prescription drug abuse Family history: CAD, hypertension Medications and Allergies Allergies Allergy/AdvReac Type Severity Reaction Status Date / Time Heparin Analogues Allergy Severe Shortness Verified 04/06/15 12:37 of Breath codeine Allergy Rash Verified 04/06/15 12:37 hydrocodone Allergy Nausea Verified 04/06/15 12:37 latex Allergy Hives Verified 04/06/15 12:37 Home Medications Medication Instructions Recorded Confirmed Last Taken Type ALPRAZolam [Xanax TAB] 2 mg PO Q8H 09/27/13 12/16/16 07/12/15 History Zolpidem [Ambien] 10 mg PO QHS PRN #14 tablet 07/14/15 12/16/16 Unknown Rx ALBUTEROL Inhaler [ProAir HFA 2 puff IH QID PRN #1 inhalation 08/24/15 12/16/16 Unknown Rx Inhaler] ALBUTEROL NEB's [Proventil 0.083% 2.5 mg IH TID 30 Days 11/05/16 12/16/16 Unknown Rx NEBS] Aspirin [Aspirin TAB] 81 mg PO QDAY #100 tablet 11/05/16 12/16/16 Unknown Rx AtorvaSTATin [Lipitor] 20 mg PO QHS #30 tablet 11/05/16 12/16/16 Unknown Rx Budesoni/Formotero 160-4.5(Nf) 2 puff IH BID 30 Days 11/05/16 12/16/16 Unknown Rx [Symbicort 160-4.5 (Nf)] Carvedilol [Coreg] 25 mg PO BID #60 tablet 11/05/16 12/16/16 Unknown Rx Lisinopril 10 mg PO BID #60 11/05/16 12/16/16 07/12/15 Rx cloNIDine [Catapres] 0.3 mg PO TID #90 tablet 11/05/16 12/16/16 Unknown Rx hydrALAZINE [Apresoline TAB] 50 mg PO Q8HR #90 tablet 11/05/16 12/16/16 Unknown Rx Active Meds: Active Medications Acetaminophen (Tylenol) 650 mg PO Q4H PRN PRN Reason: Pain MILD(1-3)/Fever >100.5/SNELL Albuterol (Proventil) 2.5 mg IH Q4HRT PRN PRN Reason: Shortness Of Breath Albuterol/Ipratropium (Duoneb *Not For Prn Use*) 1 ampul IH Q6HRT [facility] Last Admin: 12/16/16 14:40 Dose: 1 ampul Arformoterol Tartrate (Brovana Nebu) 15 mcg IH Q12HRT [facility] Aspirin (Aspirin) 81 mg PO QDAY [facility] Last Admin: 12/16/16 09:46 Dose: 81 mg Atorvastatin Calcium (Lipitor) 20 mg PO QHS [facility] Azithromycin (Zithromax) 500 mg PO QDAY [facility] Last Admin: 12/16/16 19:37 Dose: 500 mg Bisacodyl (Dulcolax) 10 mg [place] QDAY PRN PRN Reason: Constipation unrelieved by MOM Budesonide (Pulmicort) 0.5 mg IH Q12HRT [facility] Carvedilol (Coreg) 25 mg PO BID [facility] Last Admin: 12/16/16 09:46 Dose: 25 mg Clonidine HCl (Catapres) 0.3 mg PO TID [facility] Last Admin: 12/16/16 09:47 Dose: 0.3 mg Hydralazine HCl (Apresoline) 50 mg PO Q8HR [facility] Last Admin: 12/16/16 19:36 Dose: 50 mg Hydralazine HCl (Apresoline) 10 mg IV Q4HR PRN PRN Reason: BP >160/100 Sodium Chloride (Nacl 0.9%) 100 mls @ 999 mls/hr IV JAVON PRN PRN Reason: Hypotension Methylprednisolone Sodium Succinate (Solu-Medrol) 40 mg IV Q8HR [facility] Morphine Sulfate (Morphine) 2 mg IV Q4H PRN PRN Reason: Pain, Moderate (7-10) Last Admin: 12/16/16 19:39 Dose: 2 mg Ondansetron HCl (Zofran) 4 mg IV Q4H PRN PRN Reason: Nausea And Vomiting Pantoprazole Sodium (Protonix) 40 mg PO DAILY [facility] Zolpidem Tartrate (Ambien) 10 mg PO QHS PRN PRN Reason: Insomnia Review of Systems Constitutional: chills, fatigue, weakness Ears, nose, mouth and throat: no headache Cardiovascular: chest pain, shortness of breath, dyspnea on exertion, high blood pressure, no leg edema Respiratory: shortness of breath, dyspnea on exertion, home oxygen (3 liters nasal cannula) Gastrointestinal: abdominal pain (cramping feeling), nausea, no vomiting, no diarrhea, no constipation, no melena Genitourinary Female: no dysuria, no hematuria Musculoskeletal: muscle weakness Integumentary: no wounds Neurological: weakness, no paralysis, no numbness, no tingling, no seizures, no syncope, no change in speech Psychiatric: anxiety Endocrine: fatigue Exam - Vital Signs Vital signs: Vital Signs Temp Pulse Resp BP Pulse Ox 99.1 F 80 26 H 204/103 99 12/16/16 03:12 12/16/16 03:12 12/16/16 03:12 12/16/16 03:12 12/16/16 03:12 - General Appearance General appearance: well-nourished (no acute distress) EENT: ATNC Neck: Present: neck supple Respiratory: Other (Lung sounds decreased bilaterally, unlabored) Heart: regular, S1S2, other (ACCESS: Right AVF with positive thrill and bruit noted) Gastrointestinal: Present: normoactive bowel sounds. Absent: tenderness Integumentary: warm and dry Neurologic: alert and oriented x3 Musculoskeletal: Present: other (no edema to both lower extremities) Psychiatric: mood/affect appropriate, cooperative Results - Lab Results 12/16/16 03:58 12/16/16 03:58 Most recent lab results Calcium 7.7 mg/dL (8.4-10.2) L 12/16/16 03:58 Assessment and Plan - Patient Problems (1) Acute chest pain Current Visit: No Status: Acute Plan to address problem: As per Cardiology management (2) Hyperkalemia Current Visit: Yes Status: Acute Plan to address problem: Status post Hemodialysis treatment with [facility] for hyperkalemia management on (3) End stage renal disease on dialysis Current Visit: Yes Status: Chronic Plan to address problem: Hemodialysis today for ultrafiltration and clearance HD prescription adjusted to [facility] for hyperkalemia management Assess need for HD on daily basis No indication for Epogen Renal diet Maintain fluid restriction of 1 liter per day Monitor daily labs Check phosphorus level in the morning Renally dose medications Obtain daily weight Strict intake and output Renal plan discussed with Dr Munroe Continue supportive therapy (4) Hypertensive CKD, ESRD on dialysis Current Visit: Yes Status: Acute Plan to address problem: Hypertensive urgency- resolved, restarted on home medications, will monitor response to current regimen, if no improvement, will make adjustments to medication regimen (5) Hyponatremia Current Visit: No Status: Acute Plan to address problem: Serum sodium level 128 today, possibly secondary to hypervolemic hyponatremia, will repeat labs in the morning (6) COPD (chronic obstructive pulmonary disease) Current Visit: Yes Status: Acute Qualifiers: COPD type: C Chronic bronchitis type: C Emphysema type: E Plan to address problem: As per Pulmonology management
[2016-12-16] MEDS: BROVANA NEBU IH SCH (21:18)
[2016-12-16] MEDS: PULMICORT IH SCH (21:18)
[2016-12-16] MEDS ORDERED: AMBIEN PO PRN (22:00)
[2016-12-17] MEDS: DUONEB *Not for PRN Use IH SCH ×3 (03:43→09:17)
[2016-12-17] MEDS: APRESOLINE PO SCH (05:06)
[2016-12-17 05:36] LABS: Hematocrit 40.9 % (30.3-42.9); Hemoglobin 13.6 gm/dl (10.1-14.3); Mean Corpuscular HGB Conc 33 % (30-34); Mean Corpuscular Hemoglobin 34 pg (28-32); Mean Corpuscular Volume 103 fl (79-97); Platelet Count 162 K/mm3 (140-440); Red Blood Count 3.96 M/mm3 (3.65-5.03); Red Cell Distribution Width 14.7 % (13.2-15.2); White Blood Count 4.6 K/mm3 (4.5-11.0)
[2016-12-17 05:54] LABS: Calcium 8.1 mg/dL (8.4-10.2); Chloride 94.4 mmol/L (98-107); Potassium 4.4 mmol/L (3.6-5.0)
[2016-12-17 06:33] LABS: Basophils % (Manual) 0 % (0.0-1.8); Blastocytes % (Manual) 0 %; Diff Status Complete; Eosinophils % (Manual) 0 % (0.0-4.3); Platelet Estimate Consistent w Auto; RBC Morphology Normal
[2016-12-17] MEDS: PULMICORT IH SCH (08:54)
[2016-12-17] MEDS: BROVANA NEBU IH SCH (08:54)
[2016-12-17] MEDS ORDERED: PROTONIX PO SCH (10:00)
[2016-12-17] MEDS ORDERED: PEPCID IV SCH (10:00)
[2016-12-17] MEDS ORDERED: PROTONIX IV SCH (10:00)
--- NOTE | 2016-12-17 10:12 | Progress Note ---
Assessment and Plan (1) Acute chest pain Current Visit: No Status: Acute Plan to address problem: As per Cardiology management (2) Hyperkalemia Current Visit: Yes Status: Acute Plan to address problem: resolved with HD (3) End stage renal disease on dialysis Current Visit: Yes Status: Chronic Plan to address problem: no indication for HD today Assess need for HD on daily basis No indication for Epogen Renal diet Maintain fluid restriction of 1 liter per day Monitor daily labs Check phosphorus level in the morning Renally dose medications Obtain daily weight Strict intake and output (4) Hypertensive CKD, ESRD on dialysis Current Visit: Yes Status: Acute Plan to address problem: Hypertensive urgency- resolved, restarted on home medications (5) Hyponatremia Current Visit: No Status: Acute Plan to address problem: improved with HD (6) COPD (chronic obstructive pulmonary disease) Current Visit: Yes Status: Acute Qualifiers: COPD type: C Chronic bronchitis type: C Emphysema type: E Plan to address problem: As per Pulmonology management Subjective Date of service: 12/17/16 Principal diagnosis: ESRD Interval history: tolerated HD yesterday Objective - Vital Signs Vital signs: Vital Signs - 12hr 12/16/16 12/17/16 12/17/16 23:57 04:30 08:56 Temperature 98.4 F 97.2 F L Pulse Rate 86 88 Pulse Rate [ 85 Anterior Bilateral Throughout] Respiratory 18 18 Rate Respiratory 20 Rate [Anterior Bilateral Throughout] Blood Pressure 185/100 182/101 O2 Sat by Pulse 97 98 Oximetry 12/17/16 12/17/16 12/17/16 09:11 09:14 09:17 Temperature Pulse Rate Pulse Rate [ 84 68 Anterior Bilateral Throughout] Respiratory Rate Respiratory 16 16 Rate [Anterior Bilateral Throughout] Blood Pressure O2 Sat by Pulse 96 Oximetry 12/17/16 12/17/16 09:20 09:31 Temperature Pulse Rate Pulse Rate [ 68 70 Anterior Bilateral Throughout] Respiratory Rate Respiratory 18 20 Rate [Anterior Bilateral Throughout] Blood Pressure O2 Sat by Pulse Oximetry - General Appearance General appearance: well-developed, appears stated age EENT: ATNC, PERRL, mucous membranes moist Neck: no JVD, no carotid bruit Respiratory: Present: Clear to Ascultation. Absent: Rales, Ronchi Cardiology: regular, S1S2 Gastrointestinal: normoactive bowel sounds, no tenderness, no distended, no guarding Integumentary: no rash, warm and dry Neurologic: no focal deficit, no asterixis, alert and oriented x3 Musculoskeletal: other (no edema in BLE) Psychiatric: mood/affect appropriate, cooperative - Lab 12/17/16 04:42 12/17/16 04:42 Most recent lab results Calcium 8.1 mg/dL (8.4-10.2) L 12/17/16 04:42 Phosphorus 2.90 mg/dL (2.5-4.5) 12/17/16 04:42 Magnesium 2.00 mg/dL (1.7-2.3) 12/17/16 04:42
[2016-12-17] MEDS: ASPIRIN PO SCH (10:41)
[2016-12-17] MEDS: COREG PO SCH (10:42)
[2016-12-17] MEDS: ZITHROMAX PO SCH (10:42)
[2016-12-17] MEDS: CATAPRES PO SCH (10:55)
--- NOTE | 2016-12-17 11:30 | Progress Note ---
Assessment and Plan Chest pain Hypertensive urgency Coronary disease End-stage renal disease on hemodialysis Hyperkalemia Dietary indiscretion Hyperlipidemia Recommend add Imdur to the regimen medications patient's had several heart catheterizations and has been treated medically at this time denies chest pain but blood pressures been elevated with at Imdur to her regimen medications continue hydralazine daniela inhibitors and beta blockers aspirin and statin patient advised for better dietary discretion to her better BP control patient is to follow with specialist cardiology Subjective Date of service: 12/17/16 Principal diagnosis: ESRD Interval history: Patient denies any chest pain wants to go home Objective Vital Signs Temp Pulse Pulse Resp Resp BP Pulse Ox 12/17/16 10:55 154/88 12/17/16 10:42 80 154/88 12/17/16 10:00 20 12/17/16 09:31 70 20 12/17/16 09:20 68 18 12/17/16 09:17 68 16 12/17/16 09:14 84 16 12/17/16 09:11 96 12/17/16 08:56 85 20 12/17/16 08:24 97.5 F L 80 20 154/88 99 12/17/16 04:30 97.2 F L 88 18 182/101 98 12/16/16 23:57 98.4 F 86 18 185/100 97 12/16/16 21:29 89 16 12/16/16 21:20 97 12/16/16 21:18 88 15 12/16/16 20:54 80 12/16/16 19:39 98.6 F 84 20 160/87 96 12/16/16 19:13 98.0 F 79 20 148/83 12/16/16 19:01 98.2 F 79 20 148/83 12/16/16 18:00 81 158/83 12/16/16 17:45 73 130/73 12/16/16 17:30 76 129/67 12/16/16 17:15 81 151/79 12/16/16 17:00 76 148/72 12/16/16 16:45 74 145/73 12/16/16 16:30 75 140/71 12/16/16 16:15 75 147/78 12/16/16 16:00 67 152/72 12/16/16 15:45 68 148/75 09/08/17 15:30 77 143/77 12/16/16 15:15 71 149/75 12/16/16 15:08 70 149/81 12/16/16 15:00 98.2 F 72 20 161/84 12/16/16 14:50 75 18 12/16/16 14:40 79 18 97 12/16/16 12:56 22 97 12/16/16 12:23 65 139/76 96 - Physical Examination General: Appears Well HEENT: Positive: PERRL, Normocephaly, Mucus Membranes Moist Neck: Positive: neck supple Cardiac: Positive: Reg Rate and Rhythm Lungs: Positive: clear to auscultation Neuro: Positive: Grossly Intact Abdomen: Positive: Soft, Active Bowel Sounds. Negative: Tender Skin: Positive: Clear. Negative: Rash, Wound Musculoskeletal: No Fluid Collection, No Pain, Normal Range of Motion Extremities: Absent: edema - Labs and Meds CBC 12/17/16 Range/Units 04:42 WBC 4.6 (4.5-11.0) K/mm3 RBC 3.96 (3.65-5.03) M/mm3 Hgb 13.6 (10.1-14.3) gm/dl Hct 40.9 (30.3-42.9) % Plt Count 162 (140-440) K/mm3 Comprehensive Metabolic Panel 12/17/16 Range/Units 04:42 Sodium 137 D (137-145) mmol/L Potassium 4.4 D (3.6-5.0) mmol/L Chloride 94.4 L (98-107) mmol/L Carbon Dioxide 27 D (22-30) mmol/L BUN 16 (7-17) mg/dL Creatinine 3.2 H (0.7-1.2) mg/dL Glucose 191 H (65-100) mg/dL Calcium 8.1 L (8.4-10.2) mg/dL - Imaging and Cardiology EKG: image reviewed Echo: pending, report reviewed (07/2015 showed mild to moderate LVH, EF 55-60%, impaired relaxation, mild TR. ) Cardiac cath: report reviewed (LHC and PCI of LCX with BMS in 06/2013Of note, echo done 07/2015 showed mild to moderate LVH, EF 55-60%, impaired relaxation, mild TR. She underwent LHC and PCI of LCX with BMS in 06/2013. Cath revealed left main patent, RCA patent (severe tortuosity), LAD with mild ectasia in the midportion, 90% ostial diagonal (medical management). Repeat cath in [place] in 01/2015 with attempted PCI of 2nd dx branch, not able to pass wire because of tortuosity. ) - Telemetry EKG Rhythm: Sinus Rhythm - EKG Sinus rhythms and dysrhythmias: sinus rhythm Repolarization changes or abnormalities: Suggestive of hyperkalemia
--- NOTE | 2016-12-17 11:55 | Discharge Summary ---
Providers - Providers Date of Admission: 12/16/16 08:01 Attending physician: ROSANA BOATENG MD 12/16/16 08:41 Consult to Physician [CONS] Routine Consulting Provider: TONY ALMENDAREZ Reason For Exam: esrd, high K Place consult to:: yang Notified:: office Phone number called:: [phone] Was contact made?: Yes If yes, spoke with:: dr schroeder Time called:: 11:56 12/16/16 11:53 Consult to Physician [CONS] Routine Consulting Provider: CHRISS KAUR Reason For Exam: chest pain Place consult to:: yes Notified:: y Phone number called:: yes 12/16/16 12:02 Consult to Physician [CONS] Routine Consulting Provider: LILLIANA LUCAS Reason For Exam: Chronic Respiratory failure Place consult to:: pulmon Notified:: office Phone number called:: [phone] Was contact made?: Yes If yes, spoke with:: ermias Time called:: 12:21 Primary care physician: PLATE GAUGER Hospitalization Reason for admission: chest pain Condition: Good Hospital course: The patient is a 51-year-old white female with past medical history of diabetes , CAD with stent placement on 2013, COPD, end-stage renal disease on dialysis, who presents for evaluation of dyspnea for about a week. The patient states that for about a week she was experiencing exertional dyspnea and orthopnea. She unfortunately is noncompliant and continues to smoke despite multiple discussions need to quit. She was seen by cardiology and also by pulmonary determined to have central lobar pneumonia emphysema likely severe exacerbated her COPD. Cardiology also recommended Imdur to the regimen medications patient 's had several heart catheterizations and has been treated medically at this time denies chest pain but blood pressures been elevated with to her regimen medications continue hydralazine daniela inhibitors and beta blockers aspirin and statin patient advised for better dietary discretion to her better BP control patient is to follow with specialist cardiology. The patient continued to leave the floor to go smoke. Today she states that she is ready to be discharged. She was tapered off steroids. And we will anticipated long-term taper. She was also placed on Zithromax by mouth for 5 days and recommended to follow up with cardiology on pulmonary in 1-2 weeks. Is advised to quit tobacco use. 1. Centrilobular emphysema, likely severe 2. COPD exac. 3. A/C respiratory failure, hypoxia and hypercapnia 4. Acute on Chronic Diastolic Congestive Heart Failure 5. Chronic nicotine dependence, cigarettes 6. ESRD 7. Chronic diastolic CHF 8. Atypical CP- Likely Demand ischemia 9. Hyperkalemia 10. GERD 11. Moderate protein calorie malnutrition Disposition: DC-01 TO HOME OR SELFCARE Time spent for discharge: 35 mins Core Measure Documentation - Palliative Care Palliative Care/ Comfort Measures: Not Applicable - Core Measures Any of the following diagnoses?: none - VTE Discharge Requirements Deep Vein Thrombosis/Pulmonary Embolism Present on Admission: No Exam - Physical Exam Narrative exam: VITAL SIGNS: Reviewed. GENERAL: The patient appeared malnourished and cachectic. Vital signs as documented. HEAD: No signs of head trauma. EYES: Pupils are equal. Extraocular motions intact. EARS: Hearing grossly intact. MOUTH: Oropharynx is normal. NECK: No adenopathy, no JVD. CHEST: Chest with whezzing breath sounds bilaterally. But good air entry and improved compared to yesterday. Wheezing only at the bases. CARDIAC: Regular rate and rhythm. S1 and S2, without murmurs, gallops, or rubs. VASCULAR: No Edema. Peripheral pulses normal and equal in all extremities. ABDOMEN: Soft, without detectable tenderness. No sign of distention. No rebound or guarding, and no masses palpated. Bowel Sounds normal. MUSCULOSKELETAL: Good range of motion of all major joints. Extremities without clubbing, cyanosis or edema. NEUROLOGIC EXAM: Alert and oriented x 3. No focal sensory or strength deficits. Speech normal. Follows commands. PSYCHIATRIC: Mood normal. SKIN: Multiple Piercing at the lips. - Constitutional Vitals: Temp Pulse Resp BP Pulse Ox 97.5 F L 80 20 154/88 96 12/17/16 08:24 12/17/16 10:42 12/17/16 10:00 12/17/16 10:55 12/17/16 09:11 Plan Activity: advance as tolerated, fall precautions Diet: low fat, renal Special Instructions: record daily weights, record daily BP diary, smoking cessation Follow up with: SAM BAUMAN MD [Primary Care Provider] - 3-5 Days TONY ALMENDAREZ MD [Staff Physician] - 7 Days MADY CARRION MD [Staff Physician] - 7 Days FREDRICK ALVAREZ MD [Staff Physician] - 7 Days Prescriptions: ALBUTEROL Inhaler [ProAir HFA Inhaler] 2 puff IH QID PRN #1 inhalation PRN Reason: Shortness Of Breath Azithromycin [Zithromax TAB] 500 mg PO QDAY #7 tablet Budesoni/Formotero 160-4.5(Nf) [Symbicort 160-4.5 (Nf)] 2 puff IH BID 30 Days ISOSORBIDE MONOnitrate [Imdur ER] 30 mg PO QDAY #30 tablet predniSONE [Deltasone] 10 mg PO .TAPER #48 tab
[2016-12-17] MEDS ORDERED: XANAX PO PRN (11:56)
[2016-12-17] MEDS ORDERED: IMDUR PO SCH (12:00)
[2016-12-17 12:43] VITALS: BP 174/96
--- NOTE | 2016-12-17 13:05 | Progress Note ---
Assessment and Plan Imp: 1. Centrilobular emphysema, likely severe 2. COPD exac. 3. A/C respiratory failure, hypoxia 4. Chronic hypercapneic respiratory failure 5. Chronic nicotine dependence, cigarettes 6. ESRD 7. Chronic diastolic CHF 8. Atypical CP 9. Hyperkalemia Rec: 1. Zithromax PO x 5 days, Duonebs 2. Takes Symbicort at home -> pulmicort/brovana while in hospital 3. Stop smoking, patient aware 4. ABG, not done 5. Patient demanding to go home; lung exam normal today; can d/c on prednisone taper and see Dr. Aranda in 1-2 weeks, she understands Plan of care reviewed w/ patient, she understands/agrees Subjective Date of service: 12/17/16 Principal diagnosis: ESRD Interval history: No events. Had HD. SOB and wheezing much better. No cough, sputum. Demanding to go home. Active Medications Acetaminophen (Tylenol) 650 mg PO Q4H PRN PRN Reason: Pain MILD(1-3)/Fever >100.5/SNELL Albuterol (Proventil) 2.5 mg IH Q4HRT PRN PRN Reason: Shortness Of Breath Albuterol/Ipratropium (Duoneb *Not For Prn Use*) 1 ampul IH Q6HRT [facility] Last Admin: 12/17/16 09:17 Dose: 1 ampul Alprazolam (Xanax) 2 mg PO Q8H PRN PRN Reason: Anxiety Arformoterol Tartrate (Brovana Nebu) 15 mcg IH Q12HRT [facility] Last Admin: 12/17/16 08:54 Dose: 15 mcg Aspirin (Aspirin) 81 mg PO QDAY [facility] Last Admin: 12/17/16 10:41 Dose: 81 mg Atorvastatin Calcium (Lipitor) 20 mg PO QHS [facility] Last Admin: 12/16/16 21:28 Dose: 20 mg Azithromycin (Zithromax) 500 mg PO QDAY [facility] Last Admin: 12/17/16 10:42 Dose: 500 mg Bisacodyl (Dulcolax) 10 mg MS QDAY PRN PRN Reason: Constipation unrelieved by MOM Budesonide (Pulmicort) 0.5 mg IH Q12HRT [facility] Last Admin: 12/17/16 08:54 Dose: 0.5 mg Carvedilol (Coreg) 25 mg PO BID [facility] Last Admin: 12/17/16 10:42 Dose: 25 mg Clonidine HCl (Catapres) 0.3 mg PO TID [facility] Last Admin: 12/17/16 10:55 Dose: Not Given Hydralazine HCl (Apresoline) 50 mg PO Q8HR [facility] Last Admin: 12/17/16 05:06 Dose: 50 mg Hydralazine HCl (Apresoline) 10 mg IV Q4HR PRN PRN Reason: BP >160/100 Sodium Chloride (Nacl 0.9%) 100 mls @ 999 mls/hr IV JAVON PRN PRN Reason: Hypotension Isosorbide Mononitrate (Imdur) 30 mg PO QDAY [facility] Methylprednisolone Sodium Succinate (Solu-Medrol) 40 mg IV Q8HR [facility] Last Admin: 12/17/16 05:05 Dose: 40 mg Morphine Sulfate (Morphine) 2 mg IV Q4H PRN PRN Reason: Pain, Moderate (7-10) Last Admin: 12/16/16 19:39 Dose: 2 mg Ondansetron HCl (Zofran) 4 mg IV Q4H PRN PRN Reason: Nausea And Vomiting Pantoprazole Sodium (Protonix) 40 mg PO DAILY [facility] Last Admin: 12/17/16 10:41 Dose: 40 mg Zolpidem Tartrate (Ambien) 10 mg PO QHS PRN PRN Reason: Insomnia Objective Vital Signs - 12hr 12/17/16 12/17/16 12/17/16 04:30 08:24 08:56 Temperature 97.2 F L 97.5 F L Pulse Rate 88 80 Pulse Rate [ 85 Anterior Bilateral Throughout] Respiratory 18 20 Rate Respiratory 20 Rate [Anterior Bilateral Throughout] Blood Pressure 182/101 154/88 O2 Sat by Pulse 98 99 Oximetry 12/17/16 12/17/16 12/17/16 09:11 09:14 09:17 Temperature Pulse Rate Pulse Rate [ 84 68 Anterior Bilateral Throughout] Respiratory Rate Respiratory 16 16 Rate [Anterior Bilateral Throughout] Blood Pressure O2 Sat by Pulse 96 Oximetry 12/17/16 12/17/16 12/17/16 09:20 09:31 10:00 Temperature Pulse Rate Pulse Rate [ 68 70 Anterior Bilateral Throughout] Respiratory 20 Rate Respiratory 18 20 Rate [Anterior Bilateral Throughout] Blood Pressure O2 Sat by Pulse Oximetry 12/17/16 12/17/16 12/17/16 10:42 10:55 11:40 Temperature 97.5 F L Pulse Rate 80 83 Pulse Rate [ Anterior Bilateral Throughout] Respiratory 20 Rate Respiratory Rate [Anterior Bilateral Throughout] Blood Pressure 154/88 154/88 174/96 O2 Sat by Pulse 95 Oximetry Constitutional: no acute distress, alert, other (cachectic) Eyes: non-icteric ENT: oropharynx moist Neck: supple Effort: normal Ascultation: Bilateral: clear Cardiovascular: regular rate and rhythm (no mrg) Gastrointestinal: normoactive bowel sounds, soft, non-tender, non-distended Integumentary: normal Extremities: no cyanosis, pink and warm, edema (trace pedal edema bilaterally) Neurologic: normal mental status, non-focal exam, pupils equal and round, CN II- XII normal Psychiatric: mood appropriate, affect normal CBC and BMP: 12/17/16 04:42 12/17/16 04:42 ABG, PT/INR, D-dimer: PT/INR, D-dimer PT 12.4 Sec. (12.2-14.9) 12/16/16 03:58 INR 0.93 (0.87-1.13) 12/16/16 03:58 Abnormal lab findings: Abnormal Labs 12/17/16 12/17/16 12/17/16 04:42 04:42 04:42 MCV 103 H MCH 34 H Seg Neuts % (Manual) 84.0 H Lymphocytes % (Manual) 3.0 L Lymphocytes # (Manual) 0.1 L Chloride 94.4 L Creatinine 3.2 H Glucose 191 H Calcium 8.1 L PTH Intact 88.85 H Chest x-ray: report reviewed, image reviewed
== END 2016-12-17 13:05 | disposition home or self-care (01) | DRG 291 ==
LOC: ED 02:54 → 4A 08:01
PROVIDERS: ADMIT Internal Medicine; ATTEND Internal Medicine
PROC: 5A1D00Z (ICD-10-PCS; principal; 2016-12-16)
DX: I13.2 Hypertensive heart and chronic kidney disease with heart failure and with stage 5 chronic kidney disease, or end stage renal disease (principal); N18.6 End stage renal disease; J96.21 Acute and chronic respiratory failure with hypoxia; I50.33 Acute on chronic diastolic (congestive) heart failure; J18.8 Other pneumonia, unspecified organism; J96.22 Acute and chronic respiratory failure with hypercapnia; J44.1 Chronic obstructive pulmonary disease with (acute) exacerbation; E87.1 Hypo-osmolality and hyponatremia; E44.0 Moderate protein-calorie malnutrition; J44.0 Chronic obstructive pulmonary disease with (acute) lower respiratory infection; Z68.1 Body mass index [BMI] 19.9 or less, adult; E87.5 Hyperkalemia; F41.9 Anxiety disorder, unspecified; I25.10 Atherosclerotic heart disease of native coronary artery without angina pectoris; Z60.2 Problems related to living alone; K21.9 Gastro-esophageal reflux disease without esophagitis; I16.0 Hypertensive urgency; E78.5 Hyperlipidemia, unspecified; F17.210 Nicotine dependence, cigarettes, uncomplicated; I25.2 Old myocardial infarction; Z82.49 Family history of ischemic heart disease and other diseases of the circulatory system; Z79.899 Other long term (current) drug therapy; Z88.8 Allergy status to other drugs, medicaments and biological substances; Z91.040 Latex allergy status; Z88.6 Allergy status to analgesic agent; Z71.6 Tobacco abuse counseling
CPT/HCPCS: 36415; 71010; 80048; 83735; 83970; 84100; 84484; 85007; 85025; 85610; 85730; 93005; 93010; 94640; 94760; 96374; 96375; 99406; A9270-GY; J0610; J0885; J1815; J2270; J2920; J7070

== ENCOUNTER 2017-01-26 10:33 | Outpatient (CLI) | payer MEDICARE ==
--- NOTE | 2017-01-26 11:17 | Cat Scan Report ---
CT OF THE ABDOMEN AND PELVIS WITHOUT CONTRAST HISTORY: Hematuria. TECHNIQUE: Helical CT without contrast. Sagittal and coronal reformatted images. FINDINGS: Compared to the CT abdomen pelvis with contrast dated 04/06/15. Both kidneys are normal contour and position. There does appear to be mild renal atrophy bilaterally. A solitary 3 mm calyceal stone is identified in the mid left kidney on image 85, series 2. No left nephrolithiasis. No ureteral stones or hydronephrosis. The bladder is empty but grossly normal. The liver, biliary system, pancreas, spleen and adrenal glands are unremarkable. Oral contrast is present in the distal small bowel loops and colon. No evidence for bowel obstruction, focal inflammation or large mass. The appendix is within normal limits. The uterus and adnexa are unremarkable. There are diffuse aortic calcifications. An infrarenal AAA measures 3 cm. No evidence for acute inflammation, adenopathy, free air or ascites. There is mild cardiomegaly and trace pericardial effusion. The visualized lung bases are clear. No suspicious bony lesion or fracture. IMPRESSION: Solitary 3 mm calyceal stone in the mid right kidney. Mild bilateral renal atrophy. Atherosclerotic disease in aorta with aneurysm measuring 3 cm. Mild cardiomegaly and trace pericardial effusion.
== END 2017-01-26 10:34 | disposition home or self-care (01) ==
LOC: CT 10:33
PROVIDERS: ATTEND Internal Medicine Nephrology
DX: N20.0 Calculus of kidney (principal); I51.7 Cardiomegaly; I70.0 Atherosclerosis of aorta; I71.4 Abdominal aortic aneurysm, without rupture; N26.1 Atrophy of kidney (terminal)
CPT/HCPCS: 74176

== ENCOUNTER 2017-12-22 00:16 | Inpatient (IN) | payer MEDICARE ==
[2017-12-22 02:04] LABS: Basophils % (Auto) 0.5 % (0.0-1.8); Eosinophils # (Auto) 0.1 K/mm3 (0.0-0.4); Eosinophils % (Auto) 1.7 % (0.0-4.3); Hematocrit 32.2 % (30.3-42.9); Lymphocytes # (Auto) 0.8 K/mm3 (1.2-5.4); Lymphocytes % (Auto) 19.3 % (13.4-35.0); Mean Corpuscular HGB Conc 34 % (30-34); Mean Corpuscular Hemoglobin 35 pg (28-32); Mean Corpuscular Volume 102 fl (79-97); Monocytes # (Auto) 0.4 K/mm3 (0.0-0.8); Monocytes % (Auto) 9.3 % (0.0-7.3); Red Blood Count 3.18 M/mm3 (3.65-5.03); Red Cell Distribution Width 14.9 % (13.2-15.2)
[2017-12-22 02:06] LABS: Platelet Count 94 K/mm3 (140-440)
[2017-12-22 02:20] LABS: Albumin 4.2 g/dL (3.9-5); Calcium 9.3 mg/dL (8.4-10.2)
[2017-12-22] MEDS ORDERED: KIONEX PO ONE (06:41)
--- NOTE | 2017-12-22 06:50 | XRay Report ---
FINAL REPORT EXAM: XR CHEST 1V AP HISTORY: hypertension TECHNIQUE: A portable semi-upright view the chest was obtained and compared to the study of 11/04/2016. FINDINGS: The lungs are hyperinflated. There are interstitial changes which appear to be on a chronic basis. There are no acute infiltrates. The heart is mildly enlarged. The thoracic aorta is mildly tortuous. The skeletal structures do not show any acute changes. IMPRESSION: COPD. Chronic changes. No acute process in the chest.
[2017-12-22 09:10] LABS: Bacteria,Urine 1+ /HPF (Negative); Bilirubin,Urine NEG (Negative); Blood,Urine MOD (Negative); Color,Urine Yellow (Yellow); Mucus,Urine FEW /HPF; Urobilinogen,Urine < 2.0 mg/dL (<2.0)
--- NOTE | 2017-12-22 09:51 | Consultation ---
History of Present Illness - Reason for Consult Consult date: 12/22/17 end stage renal disease - History of Present Illness patient with h/o ESRD on HD every MWF, last tx was monday, she came to the ED for worsening SOB and swelling in her legs, she also mentioned she started to have rash in both in her legs the last 24 hours. CXR showed mild congestion and her lab results noted to for mild hyperkalemia, renal consult was requested for HD management Past History Past Medical History: ESRD, hypertension Medications and Allergies Allergies Allergy/AdvReac Type Severity Reaction Status Date / Time Heparin Analogues Allergy Severe Shortness Verified 04/06/15 12:37 of Breath codeine Allergy Rash Verified 04/06/15 12:37 hydrocodone Allergy Nausea Verified 04/06/15 12:37 latex Allergy Hives Verified 04/06/15 12:37 Home Medications Medication Instructions Recorded Confirmed Last Taken Type ALPRAZolam [Xanax TAB] 2 mg PO Q8H 09/27/13 12/16/16 07/12/15 History Zolpidem [Ambien] 10 mg PO QHS PRN #14 tablet 07/14/15 12/16/16 Unknown Rx ALBUTEROL NEB's [Proventil 0.083% 2.5 mg IH TID 30 Days nebu 11/05/16 12/16/16 Unknown Rx NEBS] Aspirin [Aspirin TAB] 81 mg PO QDAY #100 tablet 11/05/16 12/16/16 Unknown Rx AtorvaSTATin [Lipitor] 20 mg PO QHS #30 tablet 11/05/16 12/16/16 Unknown Rx Carvedilol [Coreg] 25 mg PO BID #60 tablet 11/05/16 12/16/16 Unknown Rx cloNIDine [Catapres] 0.3 mg PO TID #90 tablet 11/05/16 12/16/16 Unknown Rx hydrALAZINE [Apresoline TAB] 50 mg PO Q8HR #90 tablet 11/05/16 12/16/16 Unknown Rx ALBUTEROL Inhaler (OR & NICU) 2 puff IH QID PRN #1 inhalation 12/17/16 Unknown Rx [ProAir HFA Inhaler] Azithromycin [Zithromax TAB] 500 mg PO QDAY #7 tablet 12/17/16 Unknown Rx Budesoni/Formotero 160-4.5(Nf) 2 puff IH BID 30 Days inha 12/17/16 Unknown Rx [Symbicort 160-4.5 (Nf)] ISOSORBIDE MONOnitrate [Imdur ER] 30 mg PO QDAY #30 tablet 12/17/16 Unknown Rx predniSONE [Deltasone] 10 mg PO .TAPER #48 tab 12/17/16 Unknown Rx Review of Systems All systems: negative (SOB, swellingin legs) Exam - Vital Signs Vital signs: Vital Signs Temp Pulse Resp BP Pulse Ox 97.6 F 75 14 143/77 99 12/22/17 00:45 12/22/17 00:45 12/22/17 00:45 12/22/17 00:45 12/22/17 00:45 - General Appearance General appearance: well-developed, well-nourished, appears stated age EENT: ATNC, PERRL, mucous membranes moist Neck: Present: neck supple Respiratory: Rales, Ronchi Heart: regular, S1S2 Gastrointestinal: Present: normoactive bowel sounds Integumentary: rash, warm and dry Neurologic: no focal deficit, no asterixis, alert and oriented x3 Musculoskeletal: Present: other (edema in BLE) Psychiatric: mood/affect appropriate, cooperative Results - Lab Results 12/22/17 01:08 12/22/17 01:08 Most recent lab results Calcium 9.3 mg/dL (8.4-10.2) 12/22/17 01:08 Assessment and Plan ESRD on HD - HD today for clearance and volume removal - possible need for HD tomorrow - renally dose meds - stricit I&O - daily weights hypoxic respiratory failure - chronic, h/o COPD, on home oxygen - UF with HD Hyperkalemia - HD as above - s/p kaeyxelate BLE edema - doppler is pending - HD with UF today please call if you have any question, cell# [phone]
--- NOTE | 2017-12-22 10:53 | Emergency Department Report ---
ED General Adult HPI - General Chief complaint: Extremity Problem,Nontraumatic Stated complaint: BILATERAL LEG EDEMA Time Seen by Provider: 12/22/17 06:06 Source: patient Mode of arrival: Ambulatory Limitations: No Limitations - History of Present Illness Initial comments: 2-year-old female states that she came to the emergency room today because her feet are swollen. She did not want to go to dialysis because she was short of breath. She has COPD on home O2. She is not complaining of wheezing. She is not complaining of dyspnea at rest. She denies being on CPAP. I think she is still tobacco dependent. She does not complain of chest pain. She does not complain of leg pain, fever, or chills. She states that she has had leg edema for over a week. She was recently admitted to this hospital: The patient is a 51-year-old white female with past medical history of diabetes , CAD with stent placement on 2013, COPD, end-stage renal disease on dialysis, who presents for evaluation of dyspnea for about a week. The patient states that for about a week she was experiencing exertional dyspnea and orthopnea. She unfortunately is noncompliant and continues to smoke despite multiple discussions need to quit. She was seen by cardiology and also by pulmonary determined to have central lobar pneumonia emphysema likely severe exacerbated her COPD. Cardiology also recommended Imdur to the regimen medications patient 's had several heart catheterizations and has been treated medically at this time denies chest pain but blood pressures been elevated with to her regimen medications continue hydralazine daniela inhibitors and beta blockers aspirin and statin patient advised for better dietary discretion to her better BP control patient is to follow with specialist cardiology. The patient continued to leave the floor to go smoke. Today she states that she is ready to be discharged. She was tapered off steroids. And we will anticipated long-term taper. She was also placed on Zithromax by mouth for 5 days and recommended to follow up with cardiology on pulmonary in 1-2 weeks. Is advised to quit tobacco use. 1. Centrilobular emphysema, likely severe 2. COPD exac. 3. A/C respiratory failure, hypoxia and hypercapnia 4. Acute on Chronic Diastolic Congestive Heart Failure 5. Chronic nicotine dependence, cigarettes 6. ESRD 7. Chronic diastolic CHF 8. Atypical CP- Likely Demand ischemia 9. Hyperkalemia 10. GERD 11. Moderate protein calorie malnutrition -: Gradual - Related Data Home Medications Medication Instructions Recorded Confirmed Last Taken ALPRAZolam [Xanax TAB] 2 mg PO Q8H 09/27/13 12/16/16 07/12/15 Previous Rx's Medication Instructions Recorded Last Taken Type Zolpidem [Ambien] 10 mg PO QHS PRN #14 tablet 07/14/15 Unknown Rx ALBUTEROL NEB's [Proventil 0.083% 2.5 mg IH TID 30 Days nebu 11/05/16 Unknown Rx NEBS] Aspirin [Aspirin TAB] 81 mg PO QDAY #100 tablet 11/05/16 Unknown Rx AtorvaSTATin [Lipitor] 20 mg PO QHS #30 tablet 11/05/16 Unknown Rx Carvedilol [Coreg] 25 mg PO BID #60 tablet 11/05/16 Unknown Rx cloNIDine [Catapres] 0.3 mg PO TID #90 tablet 11/05/16 Unknown Rx hydrALAZINE [Apresoline TAB] 50 mg PO Q8HR #90 tablet 11/05/16 Unknown Rx ALBUTEROL Inhaler (OR & NICU) 2 puff IH QID PRN #1 inhalation 12/17/16 Unknown Rx [ProAir HFA Inhaler] Azithromycin [Zithromax TAB] 500 mg PO QDAY #7 tablet 12/17/16 Unknown Rx Budesoni/Formotero 160-4.5(Nf) 2 puff IH BID 30 Days inha 12/17/16 Unknown Rx [Symbicort 160-4.5 (Nf)] ISOSORBIDE MONOnitrate [Imdur ER] 30 mg PO QDAY #30 tablet 12/17/16 Unknown Rx predniSONE [Deltasone] 10 mg PO .TAPER #48 tab 12/17/16 Unknown Rx Allergies Allergy/AdvReac Type Severity Reaction Status Date / Time Heparin Analogues Allergy Severe Shortness Verified 04/06/15 12:37 of Breath codeine Allergy Rash Verified 04/06/15 12:37 hydrocodone Allergy Nausea Verified 04/06/15 12:37 latex Allergy Hives Verified 04/06/15 12:37 ED Review of Systems ROS: Stated complaint: BILATERAL LEG EDEMA Other details as noted in HPI Constitutional: denies: chills, fever Eyes: denies: eye pain, eye discharge, vision change ENT: denies: ear pain, throat pain Respiratory: shortness of breath. denies: cough, wheezing Cardiovascular: edema. denies: chest pain, palpitations Endocrine: no symptoms reported Gastrointestinal: denies: abdominal pain, nausea, diarrhea Genitourinary: denies: urgency, dysuria, discharge Musculoskeletal: denies: back pain, joint swelling, arthralgia Skin: denies: rash, lesions Neurological: denies: headache, weakness, paresthesias Psychiatric: denies: anxiety, depression Hematological/Lymphatic: denies: easy bleeding, easy bruising ED Past Medical Hx - Past Medical History Previous Medical History?: Yes Hx Hypertension: Yes (2007) Hx CVA: No Hx Heart Attack/AMI: Yes (08/2012) Hx Congestive Heart Failure: Yes (2007) Hx Diabetes: No Hx Deep Vein Thrombosis: No Hx Pulmonary Embolism: No Hx GERD: No Hx Liver Disease: No Hx Renal Disease: Yes (ESRD/graft right arm /Dialysis on M,W, F) Hx Sickle Cell Disease: No Hx Arthritis: Yes Hx Headaches / Migraines: Yes (with High bld pressure) Hx Seizures: No Hx Kidney Stones: No Hx Psychiatric Treatment: Yes (anxiety) Hx Asthma: No Hx COPD: Yes (2007) Hx Tuberculosis: No Hx Dementia: No Hx HIV: No - Surgical History Past Surgical History?: Yes Hx Coronary Stent: No Hx Open Heart Surgery: No Hx Pacemaker: No Hx Internal Defibrillator: No Hx Cholecystectomy: No Hx Appendectomy: No Hx Breast Surgery: Yes (breast implants) Additional Surgical History: Right subclavian vas cath. tubal ligation and reversal. rt arm dialysis shunt - Social History Smoking Status: Current Every Day Smoker Substance Use Type: Alcohol - Medications Home Medications: Home Medications Medication Instructions Recorded Confirmed Last Taken Type ALPRAZolam [Xanax TAB] 2 mg PO Q8H 09/27/13 12/16/16 07/12/15 History Zolpidem [Ambien] 10 mg PO QHS PRN #14 tablet 07/14/15 12/16/16 Unknown Rx ALBUTEROL NEB's [Proventil 0.083% 2.5 mg IH TID 30 Days nebu 11/05/16 12/16/16 Unknown Rx NEBS] Aspirin [Aspirin TAB] 81 mg PO QDAY #100 tablet 11/05/16 12/16/16 Unknown Rx AtorvaSTATin [Lipitor] 20 mg PO QHS #30 tablet 11/05/16 12/16/16 Unknown Rx Carvedilol [Coreg] 25 mg PO BID #60 tablet 11/05/16 12/16/16 Unknown Rx cloNIDine [Catapres] 0.3 mg PO TID #90 tablet 11/05/16 12/16/16 Unknown Rx hydrALAZINE [Apresoline TAB] 50 mg PO Q8HR #90 tablet 11/05/16 12/16/16 Unknown Rx ALBUTEROL Inhaler (OR & NICU) 2 puff IH QID PRN #1 inhalation 12/17/16 Unknown Rx [ProAir HFA Inhaler] Azithromycin [Zithromax TAB] 500 mg PO QDAY #7 tablet 12/17/16 Unknown Rx Budesoni/Formotero 160-4.5(Nf) 2 puff IH BID 30 Days inha 12/17/16 Unknown Rx [Symbicort 160-4.5 (Nf)] ISOSORBIDE MONOnitrate [Imdur ER] 30 mg PO QDAY #30 tablet 12/17/16 Unknown Rx predniSONE [Deltasone] 10 mg PO .TAPER #48 tab 12/17/16 Unknown Rx ED Physical Exam - General Limitations: No Limitations General appearance: cachectic - Head Head exam: Present: atraumatic, normocephalic - Eye Eye exam: Present: normal appearance, PERRL, EOMI. Absent: scleral icterus - ENT ENT exam: Present: mucous membranes moist - Neck Neck exam: Present: normal inspection. Absent: tenderness, meningismus - Respiratory Respiratory exam: Present: normal lung sounds bilaterally. Absent: respiratory distress - Cardiovascular Cardiovascular Exam: Present: regular rate, normal rhythm. Absent: systolic murmur, diastolic murmur, rubs, gallop - GI/Abdominal GI/Abdominal exam: Present: soft, normal bowel sounds. Absent: distended, tenderness, guarding, rebound, rigid - Extremities Exam Extremities exam: Present: pedal edema (2-3+ pedal edema and some lower leg edema. There is erythema of both lower legs consistent with stasis perhaps stasis cellulitis. There is no lymphangitis.) - Back Exam Back exam: Present: normal inspection - Neurological Exam Neurological exam: Present: alert, oriented X3, CN II-XII intact. Absent: motor sensory deficit - Psychiatric Psychiatric exam: Present: normal affect, normal mood - Skin Skin exam: Present: warm, dry, intact, normal color. Absent: rash ED Course Vital Signs 12/22/17 12/22/17 00:45 04:16 Temperature 97.6 F 97.3 F L Pulse Rate 75 69 Respiratory 14 14 Rate Blood Pressure 143/77 146/76 O2 Sat by Pulse 99 99 Oximetry - Reevaluation(s) Reevaluation #1: Patient has been seen by her rehabilitation director Dr. Bingham who recommended admission to the hospitalist service. Dr. Rowan has been notified. Patient will be dialyzed today. 12/22/17 11:18 12/22/17 11:20 Patient does have erythema of the lower extremities. I will defer to the hospitalist staff with me think this is really of antibiotic coverage and how so. Reevaluation #2: Patient was found to be thrombocytopenic. Therefore I have ordered coags a lactic acid and blood cultures. Further evaluation per the hospitalist staff. Her platelets have been at this level prior. 12/22/17 11:24 Reevaluation #3: The patient is suspected to have chronic hypercapnic respiratory failure. She refused a blood gas therefore I cannot confirm this. He should be on nocturnal CPAP. Will defer this to the hospitalist. 12/22/17 11:24 ED Medical Decision Making - Lab Data Result diagrams: 12/22/17 01:08 12/22/17 01:08 Laboratory Results - last 24 hr 12/22/17 12/22/17 12/22/17 01:08 01:08 09:08 WBC 4.1 L RBC 3.18 L Hgb 11.0 Hct 32.2 MCV 102 H MCH 35 H MCHC 34 RDW 14.9 Plt Count 94 L Lymph % (Auto) 19.3 [place] % (Auto) 9.3 H Eos % (Auto) 1.7 Baso % (Auto) 0.5 Lymph # 0.8 L [place] # 0.4 Eos # 0.1 Baso # 0.0 Seg Neutrophils % 69.2 Seg Neutrophils # 2.8 Sodium 133 L Potassium 5.2 H Chloride 85.1 L Carbon Dioxide 38 H Anion Gap 15 BUN 20 H Creatinine 4.1 H Estimated GFR 11 BUN/Creatinine Ratio 5 Glucose 102 H Calcium 9.3 Total Bilirubin 0.40 AST 39 ALT 17 Alkaline Phosphatase 119 NT-Pro-B Natriuret Pep 9139 H Total Protein 7.0 Albumin 4.2 Albumin/Globulin Ratio 1.5 Urine Color Yellow Urine Turbidity Slightly-cloudy Urine pH 8.0 H Ur Specific [place] 1.005 Urine Protein 100 mg/dl Urine Glucose (UA) Neg Urine Ketones Neg Urine Blood Mod Urine Nitrite Neg Urine Bilirubin Neg Urine Urobilinogen < 2.0 Ur Leukocyte Esterase Sm Urine WBC (Auto) 6.0 Urine RBC (Auto) 15.0 U Epithel Cells (Auto) 4.0 Urine Bacteria (Auto) 1+ Urine Mucus Few - EKG Data -: EKG Interpreted by Me EKG shows normal: sinus rhythm, axis, intervals, ST-T waves Rate: normal - EKG Data Interpretation: other (QS in V2 related to axis and or old zone for R-wave progression noted no acute ischemic changes) - Radiology Data Radiology results: report reviewed interpreted by me: Pulmonary vascular congestion Critical care attestation.: If time is entered above; I have spent that time in minutes in the direct care of this critically ill patient, excluding procedure time. ED Disposition Clinical Impression: Hyperkalemia, End-stage renal disease needing dialysis, Thrombocytopenia, Chronic hypercapnic respiratory failure CHF (congestive heart failure) Qualifiers: Heart failure type: diastolic Heart failure chronicity: acute on chronic Qualified Code(s): I50.33 - Acute on chronic diastolic (congestive) heart failure Disposition: OP ADMIT IP TO THIS HOSP Is pt being admited?: Yes Does the pt Need Aspirin: No (we'll hold secondary thrombocytopenia) Condition: Stable Referrals: PRIMARY CAREMD [Primary Care Provider] - 3-5 Days Time of Disposition: 11:26
[2017-12-22 12:48] LABS: INR 0.98 (0.87-1.13)
[2017-12-22 12:49] LABS: Partial Thromboplastin Time 29.2 Sec. (24.2-36.6)
--- NOTE | 2017-12-22 20:53 | History and Physical Report ---
History of Present Illness Date of examination: 12/22/17 Date of admission: 12/22/17 11:27 Chief complaint: CC Increasing SOB History of present illness: History of Present Illness: 5 2-year-old female came to the emergency room today because her feet are swollen and SOB.. She did not want to go to dialysis because she was short of breath. She has COPD on home O2. She is not complaining of wheezing. She is not complaining of dyspnea at rest. She denies being on CPAP. does not complain of chest pain. She does not complain of leg pain, fever, or chills. She states that she has had leg edema for over a week. Past Medical History Previous Medical History?: Yes Hx Hypertension: Yes (2007) Hx Heart Attack/AMI: Yes (08/2012) Hx Congestive Heart Failure: Yes (2007) Hx Renal Disease: Yes (ESRD/graft right arm /Dialysis on M,W, F) Hx Sickle Cell Disease: No Hx Arthritis: Yes Hx Headaches / Migraines: Yes (with High bld pressure) Hx Psychiatric Treatment: Yes (anxiety) Hx COPD: Yes (2007) - Surgical History Past Surgical History?: Yes Breast Surgery: Yes (breast implants) Additional Surgical History: Right subclavian vas cath. tubal ligation and reversal. rt arm dialysis shunt Social History Smoking Status: Current Every Day Smoker Substance Use Type: Alcohol Medications Home Medications: Home Medications Medication Instructions Recorded Confirmed Last Taken Type ALPRAZolam [Xanax TAB] 2 mg PO Q8H 09/27/13 12/16/16 07/12/15 History Zolpidem [Ambien] 10 mg PO QHS PRN #14 tablet 07/14/15 12/16/16 Unknown Rx ALBUTEROL NEB's [Proventil 0.083% 2.5 mg IH TID 30 Days nebu 11/05/16 12/16/16 Unknown Rx NEBS] Aspirin [Aspirin TAB] 81 mg PO QDAY #100 tablet 11/05/16 12/16/16 Unknown Rx AtorvaSTATin [Lipitor] 20 mg PO QHS #30 tablet 11/05/16 12/16/16 Unknown Rx Carvedilol [Coreg] 25 mg PO BID #60 tablet 11/05/16 12/16/16 Unknown Rx cloNIDine [Catapres] 0.3 mg PO TID #90 tablet 11/05/16 12/16/16 Unknown Rx hydrALAZINE [Apresoline TAB] 50 mg PO Q8HR #90 tablet 11/05/16 12/16/16 Unknown Rx ALBUTEROL Inhaler (OR & NICU) 2 puff IH QID PRN #1 inhalation 12/17/16 Unknown Rx [ProAir HFA Inhaler] Azithromycin [Zithromax TAB] 500 mg PO QDAY #7 tablet 12/17/16 Unknown Rx Budesoni/Formotero 160-4.5(Nf) 2 puff IH BID 30 Days inha 12/17/16 Unknown Rx [Symbicort 160-4.5 (Nf)] ISOSORBIDE MONOnitrate [Imdur ER] 30 mg PO QDAY #30 tablet 12/17/16 Unknown Rx predniSONE [Deltasone] 10 mg PO .TAPER #48 tab 12/17/16 Unknown Rx Review of Systems ROS: Stated complaint: BILATERAL LEG EDEMA Other details as noted in HPI Constitutional: denies: chills, fever Eyes: denies: eye pain, eye discharge, vision change ENT: denies: ear pain, throat pain Respiratory: shortness of breath. denies: cough, wheezing Cardiovascular: edema. denies: chest pain, palpitations Endocrine: no symptoms reported Gastrointestinal: denies: abdominal pain, nausea, diarrhea Genitourinary: denies: urgency, dysuria, discharge Musculoskeletal: denies: back pain, joint swelling, arthralgia Skin: denies: rash, lesions Neurological: denies: headache, weakness, paresthesias Psychiatric: denies: anxiety, depression Hematological/Lymphatic: denies: easy bleeding, easy bruising Past History Past Medical History: ESRD, hypertension Medications and Allergies Allergies Allergy/AdvReac Type Severity Reaction Status Date / Time Heparin Analogues Allergy Severe Shortness Verified 04/06/15 12:37 of Breath codeine Allergy Rash Verified 04/06/15 12:37 hydrocodone Allergy Nausea Verified 04/06/15 12:37 latex Allergy Hives Verified 04/06/15 12:37 Home Medications Medication Instructions Recorded Confirmed Last Taken Type ALPRAZolam [Xanax TAB] 2 mg PO Q8H PRN 09/27/13 12/22/17 07/12/15 History Carvedilol [Coreg] 25 mg PO BID #60 tablet 11/05/16 12/22/1718 Rx cloNIDine [Catapres] 0.3 mg PO TID #90 tablet 11/05/16 12/22/17 12/22/17 03:00 Rx ALBUTEROL Inhaler (OR & NICU) 2 puff IH QID PRN #1 inhalation 12/17/16 12/22/17 Unknown Rx [ProAir HFA Inhaler] Budesoni/Formotero 160-4.5(Nf) 2 puff IH BID 30 Days inha 12/17/16 12/22/17 Rx [Symbicort 160-4.5 (Nf)] Amlodipine Besylate [Norvasc] 10 mg PO QDAY 12/22/17 12/22/17 Unknown History Atorvastatin Calcium [Lipitor] 10 mg PO DAILY 12/22/17 12/22/17 12/21/17 History Carvedilol [Coreg] 25 mg PO BID 12/22/17 12/22/17 12/21/17 History Furosemide [Lasix TAB] 40 mg PO BID 12/22/17 12/22/17 12/21/17 History Lisinopril [Zestril] 40 mg PO QDAY 12/22/17 12/22/17 12/21/17 History Nitroglycerin [Nitrostat] 0.4 mg SL Q5M PRN 12/22/17 12/22/17 Unknown History Sevelamer Carbonate [Renvela] 800 mg PO TIDWM 12/22/17 12/22/17 12/21/17 History Tiotropium [place] [Spiriva 1 puff IH DAILY 12/22/17 12/22/17 12/21/17 History Respimat] levoFLOXacin [Levaquin] 250 mg PO QDAY 12/22/17 12/22/17 12/21/17 History Exam - Constitutional Vitals: Temp Pulse Resp BP Pulse Ox 98.1 F 83 20 166/71 97 12/22/17 17:00 12/22/17 17:00 12/22/17 17:00 12/22/17 17:00 12/22/17 17:00 General appearance: Present: mild distress, well-nourished - EENT Eyes: Present: PERRL ENT: hearing intact, clear oral mucosa - Neck Neck: Present: supple, normal ROM - Respiratory Respiratory effort: normal Respiratory: bilateral: CTA - Cardiovascular Heart rate: 76 Rhythm: regular Heart Sounds: Present: S1 & S2. Absent: rub, click - Extremities Extremities: no ischemia, pulses intact, pulses symmetrical, No edema Peripheral Pulses: within normal limits - Abdominal General gastrointestinal: Present: soft, non-tender, non-distended, normal bowel sounds Female genitourinary: Present: normal - Rectal Rectal Exam: deferred - Integumentary Integumentary: Present: clear, warm, dry - Musculoskeletal Musculoskeletal: gait normal, strength equal bilaterally - Psychiatric Psychiatric: appropriate mood/affect, intact judgment & insight - Neurologic Neurologic: CNII-XII intact, moves all extremities - Allied Health Allied health notes reviewed: nursing Results - Labs CBC & Chem 7: 12/23/17 04:31 12/23/17 04:31 Labs: Laboratory Last Values WBC 4.1 K/mm3 (4.5-11.0) L 12/22/17 01:08 RBC 3.18 M/mm3 (3.65-5.03) L 12/22/17 01:08 Hgb 11.0 gm/dl (10.1-14.3) 12/22/17 01:08 Hct 32.2 % (30.3-42.9) 12/22/17 01:08 MCV 102 fl (79-97) H 12/22/17 01:08 MCH 35 pg (28-32) H 12/22/17 01:08 MCHC 34 % (30-34) 12/22/17 01:08 RDW 14.9 % (13.2-15.2) 12/22/17 01:08 Plt Count 94 K/mm3 (140-440) L 12/22/17 01:08 Lymph % (Auto) 19.3 % (13.4-35.0) 12/22/17 01:08 [place] % (Auto) 9.3 % (0.0-7.3) H 12/22/17 01:08 Eos % (Auto) 1.7 % (0.0-4.3) 12/22/17 01:08 Baso % (Auto) 0.5 % (0.0-1.8) 12/22/17 01:08 Lymph # 0.8 K/mm3 (1.2-5.4) L 12/22/17 01:08 [place] # 0.4 K/mm3 (0.0-0.8) 12/22/17 01:08 Eos # 0.1 K/mm3 (0.0-0.4) 12/22/17 01:08 Baso # 0.0 K/mm3 (0.0-0.1) 12/22/17 01:08 Seg Neutrophils % 69.2 % (40.0-70.0) 12/22/17 01:08 Seg Neutrophils # 2.8 K/mm3 (1.8-7.7) 12/22/17 01:08 PT 13.5 Sec. (12.2-14.9) 12/22/17 12:15 INR 0.98 (0.87-1.13) 12/22/17 12:15 APTT 29.2 Sec. (24.2-36.6) 12/22/17 12:15 Sodium 133 mmol/L (137-145) L 12/22/17 01:08 Potassium 5.2 mmol/L (3.6-5.0) H 12/22/17 01:08 Chloride 85.1 mmol/L (98-107) L 12/22/17 01:08 Carbon Dioxide 38 mmol/L (22-30) H 12/22/17 01:08 Anion Gap 15 mmol/L 12/22/17 01:08 BUN 20 mg/dL (7-17) H 12/22/17 01:08 Creatinine 4.1 mg/dL (0.7-1.2) H 12/22/17 01:08 Estimated GFR 11 ml/min 12/22/17 01:08 BUN/Creatinine Ratio 5 % 12/22/17 01:08 Glucose 102 mg/dL (65-100) H 12/22/17 01:08 Lactic Acid 0.60 mmol/L (0.7-2.0) L 12/22/17 12:15 Calcium 9.3 mg/dL (8.4-10.2) 12/22/17 01:08 Total Bilirubin 0.40 mg/dL (0.1-1.2) 12/22/17 01:08 AST 39 units/L (5-40) 12/22/17 01:08 ALT 17 units/L (7-56) 12/22/17 01:08 Alkaline Phosphatase 119 units/L (35-129) 12/22/17 01:08 NT-Pro-B Natriuret Pep 9139 pg/mL (0-900) H 12/22/17 01:08 Total Protein 7.0 g/dL (6.3-8.2) 12/22/17 01:08 Albumin 4.2 g/dL (3.9-5) 12/22/17 01:08 Albumin/Globulin Ratio 1.5 % 12/22/17 01:08 Urine Color Yellow (Yellow) 12/22/17 09:08 Urine Turbidity Slightly-cloudy (Clear) 12/22/17 09:08 Urine pH 8.0 (5.0-7.0) H 12/22/17 09:08 Ur Specific [place] 1.005 (1.003-1.030) 12/22/17 09:08 Urine Protein 100 mg/dl mg/dL (Negative) 12/22/17 09:08 Urine Glucose (UA) Neg mg/dL (Negative) 12/22/17 09:08 Urine Ketones Neg mg/dL (Negative) 12/22/17 09:08 Urine Blood Mod (Negative) 12/22/17 09:08 Urine Nitrite Neg (Negative) 12/22/17 09:08 Urine Bilirubin Neg (Negative) 12/22/17 09:08 Urine Urobilinogen < 2.0 mg/dL (<2.0) 12/22/17 09:08 Ur Leukocyte Esterase Sm (Negative) 12/22/17 09:08 Urine WBC (Auto) 6.0 /HPF (0.0-6.0) 12/22/17 09:08 Urine RBC (Auto) 15.0 /HPF (0.0-6.0) 12/22/17 09:08 U Epithel Cells (Auto) 4.0 /HPF (0-13.0) 12/22/17 09:08 Urine Bacteria (Auto) 1+ /HPF (Negative) 12/22/17 09:08 Urine Mucus Few /HPF 12/22/17 09:08 Short CBC 12/23/17 Range/Units 04:31 WBC 4.7 (4.5-11.0) K/mm3 Hgb 11.1 (10.1-14.3) gm/dl Hct 32.9 (30.3-42.9) % Plt Count 82 L (140-440) K/mm3 BMP 12/23/17 04:31 Chloride 98.2 Carbon Dioxide 33 H BUN 16 Creatinine 3.0 H Glucose 100 Calcium 9.1 Urine 12/22/17 Range/Units 09:08 Urine Color Yellow (Yellow) Urine pH 8.0 H (5.0-7.0) Ur Specific [place] 1.005 (1.003-1.030) Urine Protein 100 mg/dl (Negative) mg/dL Urine Glucose (UA) Neg (Negative) mg/dL - Imaging and Cardiology EKG: report reviewed Chest x-ray: report reviewed Imaging and Cardiology: CXR IMPRESSION: COPD. Chronic changes. No acute process in the chest. Assessment and Plan Advance Directives: Yes (Full code) VTE prophylaxis?: Chemical Plan of care discussed with patient/family: Yes - Patient Problems (1) Volume overload Current Visit: Yes Status: Acute Plan to address problem: Patient going for emergent HD (2) End-stage renal disease needing dialysis Current Visit: Yes Status: Acute Plan to address problem: Nephrology consulted (3) Chronic hypercapnic respiratory failure Current Visit: Yes Status: Chronic Plan to address problem: Cont duonebs Symbicort et al (4) HTN (hypertension) Current Visit: Yes Status: Chronic Qualifiers: Hypertension type: essential hypertension Qualified Code(s): I10 - Essential (primary) hypertension Plan to address problem: Cont antihypertensives (5) HLD (hyperlipidemia) Current Visit: Yes Status: Chronic Qualifiers: Hyperlipidemia type: mixed hyperlipidemia Qualified Code(s): E78.2 - Mixed hyperlipidemia Plan to address problem: Cont statins (6) Hyperkalemia Current Visit: Yes Status: Acute Plan to address problem: Patient going for HD (7) DVT prophylaxis Current Visit: No Status: Acute Plan to address problem: On Heparin
[2017-12-22] MEDS ORDERED: TYLENOL PO PRN (20:54)
[2017-12-22] MEDS ORDERED: MORPHINE IV PRN (20:54)
[2017-12-22] MEDS ORDERED: ZOFRAN IV PRN (20:54)
[2017-12-22] MEDS ORDERED: SODIUM CHLORIDE FLUSH SYRINGE 10 ML IV PRN (20:54)
[2017-12-22] MEDS ORDERED: PERCOCET 5/325 PO PRN (20:54)
[2017-12-22] MEDS ORDERED: PHENERGAN PR PRN (20:54)
[2017-12-22] MEDS ORDERED: NON-FORMULARY (Alprazolam [Xanax Tab] 2 MG) PO PRN (20:59)
[2017-12-22] MEDS ORDERED: PROAIR IH PRN (20:59)
[2017-12-22] MEDS ORDERED: PROVENTIL IH PRN (21:09)
[2017-12-22] MEDS ORDERED: NON-FORMULARY (Budesoni/Formotero 160-4.5(Nf) 2 PUFF) IH SCH (22:00)
[2017-12-22] MEDS ORDERED: AMBIEN PO PRN (22:00)
[2017-12-22] MEDS ORDERED: XANAX PO PRN (22:00)
[2017-12-22] MEDS: SODIUM CHLORIDE FLUSH SYRINGE 10 ML IV SCH (22:24)
[2017-12-22] MEDS: ZESTRIL PO SCH (22:24)
[2017-12-22] MEDS: COREG PO SCH (22:24)
[2017-12-22] MEDS: LASIX PO SCH (22:24)
[2017-12-22] MEDS: NORVASC PO SCH (22:25)
[2017-12-22] MEDS: PEPCID PO SCH (22:25)
[2017-12-22] MEDS: BROVANA NEBU IH SCH (23:19)
[2017-12-22] MEDS: PULMICORT IH SCH (23:19)
[2017-12-23] MEDS: LASIX PO SCH (05:19)
[2017-12-23 06:09] LABS: Basophils % (Auto) 0.3 % (0.0-1.8); Eosinophils # (Auto) 0.1 K/mm3 (0.0-0.4); Eosinophils % (Auto) 1.6 % (0.0-4.3); Hematocrit 32.9 % (30.3-42.9); Hemoglobin 11.1 gm/dl (10.1-14.3); Lymphocytes # (Auto) 0.7 K/mm3 (1.2-5.4); Lymphocytes % (Auto) 16.1 % (13.4-35.0); Mean Corpuscular HGB Conc 34 % (30-34); Mean Corpuscular Hemoglobin 35 pg (28-32); Mean Corpuscular Volume 103 fl (79-97); Monocytes # (Auto) 0.4 K/mm3 (0.0-0.8); Monocytes % (Auto) 8.5 % (0.0-7.3); Red Blood Count 3.21 M/mm3 (3.65-5.03); Red Cell Distribution Width 15.3 % (13.2-15.2)
[2017-12-23 06:11] LABS: Platelet Count 82 K/mm3 (140-440)
[2017-12-23 06:30] LABS: Calcium 9.1 mg/dL (8.4-10.2)
[2017-12-23] MEDS: RENVELA PO SCH ×2 (08:00→12:00)
[2017-12-23] MEDS: CATAPRES PO SCH ×2 (08:00→14:11)
[2017-12-23] MEDS: PULMICORT IH SCH (08:44)
[2017-12-23] MEDS: BROVANA NEBU IH SCH (08:44)
[2017-12-23] MEDS: PEPCID PO SCH (09:50)
[2017-12-23] MEDS: NORVASC PO SCH (09:50)
[2017-12-23] MEDS: ZESTRIL PO SCH (09:50)
[2017-12-23] MEDS: COREG PO SCH (09:50)
[2017-12-23] MEDS: SODIUM CHLORIDE FLUSH SYRINGE 10 ML IV SCH (09:51)
[2017-12-23] MEDS ORDERED: TIOTROPIUM BROMIDE IH SCH (10:00)
[2017-12-23] MEDS ORDERED: SPIRIVA IH SCH (10:00)
--- NOTE | 2017-12-23 12:02 | Discharge Summary ---
Providers - Providers Date of Admission: 12/22/17 11:27 Date of discharge: 12/23/17 Attending physician: ARIANA BETANCOURT 12/22/17 Consult to Case Management [CONS] Routine Services Needed at Discharge: Home Health Services Notified:: copy left for cm 12/22/17 20:58 Consult to Physician [CONS] Routine Comment: Consulting Provider: TONY ALMENDAREZ Physician Instructions: Reason For Exam: esrd Primary care physician: RN GYNECOLOGY Hospitalization Condition: Stable Hospital course: Patient is a 52 yo woman with history of ESRD on hemodialysis mwf, chf, hypertension, cad/ami with cardiac stent with allergies to aspirin, oa, anxiety disorder, tobacco dependency, end stage COPD with chronic hypoxic respiratory failure on home O2 who pw legs swelling and SOB. CXR did not show chf. pCXR reported no acute process, COPD and chronic changes. Leg swelling from Volume overload; Patient going for emergent HD End-stage renal disease needing dialysis: Nephrology consulted Chronic hypercapnic respiratory failure: continue O2 HTN (hypertension): low salt diet, antihypertensives HLD (hyperlipidemia): statins Hyperkalemia, treat with HD Severe malnutrition, bmi 16: advise to stop smoking, encourage dietary supplement such as Ensure shakes Tobacco dependency: mitochondrial disorders counselor on stopping. Anxiety disorder: continue home medication. Disposition: home after hemodialysis. Disposition: DC TO HOME OR SELFCARE Time spent for discharge: 33 minutes Core Measure Documentation - Palliative Care Palliative Care/ Comfort Measures: Not Applicable - Core Measures Any of the following diagnoses?: none - VTE Discharge Requirements Deep Vein Thrombosis/Pulmonary Embolism Present on Admission: No Has pt received <5 days of overlap therapy or INR<2.0: No Anticoagulant overlap therapy prescribed at discharge: No Contraindication No Overlap Therapy order at DC: Not Indicated Exam - Physical Exam Narrative exam: GEN: cachetic, bmi 16.7, NAD, Awake, Alert, Orientated x 3 HEENT: NCAT, EOMI, PERRL, OP Clear NECK: supple, no adenopathy, no thyromegaly, no JVD CVS/HEART: RRR, normal S1S2, pulses present bilaterally CHEST/LUNGS: CTA B, Symmetrical chest expansion, good air entry bilaterally GI/Abdomen: soft, NTND, good bowel sounds, no guarding or rebound /Bladder: no suprapubic tenderness, no CVA or paraspinal tenderness EXT/Skin: no c/c/e,no leg edema as she calms, she has ecchymosis around both lower legs, she c/o about the winkles around ankles/lower leg MSK: FROM x 4 Neuro: CN 2-12 grossly intact, no new focal deficits Psych: anxious - Constitutional Vitals: Temp Pulse Resp BP Pulse Ox 97.9 F 88 18 174/82 99 12/23/17 06:22 12/23/17 08:54 12/23/17 08:54 12/23/17 06:22 12/23/17 08:44 Plan Diet: low salt, renal Special Instructions: smoking cessation Follow up with: PRIMARY CAREMD [Primary Care Provider] - 3-5 Days LENNIE LU MD [Staff Physician] - 7 Days
--- NOTE | 2017-12-23 15:54 | Progress Note ---
Assessment and Plan ESRD on HD - no indication for HD today - OK to be discharged from renal standpoint - renally dose meds - stricit I&O - daily weights hypoxic respiratory failure - chronic, h/o COPD, on home oxygen Hyperkalemia - low K diet BLE edema - doppler is negative for DVT Subjective Date of service: 12/23/17 Principal diagnosis: ESRD Interval history: tolerated HD yesterday Objective - Vital Signs Vital signs: Vital Signs - 12hr 12/23/17 12/23/17 12/23/17 06:22 08:44 08:54 Temperature 97.9 F Pulse Rate 87 Pulse Rate [ 85 88 Anterior Bilateral Throughout] Respiratory 20 Rate Respiratory 18 18 Rate [Anterior Bilateral Throughout] Blood Pressure 174/82 O2 Sat by Pulse 96 99 Oximetry 12/23/17 12:17 Temperature 98.1 F Pulse Rate 76 Pulse Rate [ Anterior Bilateral Throughout] Respiratory 20 Rate Respiratory Rate [Anterior Bilateral Throughout] Blood Pressure 148/80 O2 Sat by Pulse 98 Oximetry - General Appearance General appearance: well-developed, well-nourished EENT: ATNC, PERRL, mucous membranes moist Neck: no JVD, no carotid bruit Respiratory: Present: Clear to Ascultation. Absent: Rales, Ronchi Cardiology: regular, S1S2 Gastrointestinal: normoactive bowel sounds Integumentary: no rash, warm and dry Neurologic: no focal deficit, no asterixis, alert and oriented x3 Musculoskeletal: other (trace pitting edema in BLE) Psychiatric: mood/affect appropriate, cooperative - Lab 12/23/17 04:31 12/23/17 04:31 Most recent lab results Calcium 9.1 mg/dL (8.4-10.2) 12/23/17 04:31 Phosphorus 4.10 mg/dL (2.5-4.5) 12/23/17 04:31
[2017-12-23 18:12] VITALS: BP 158/77
== END 2017-12-23 18:22 | disposition home or self-care (01) | DRG 291 ==
LOC: ED 00:16 → 3A 11:27
PROVIDERS: ADMIT Internal Medicine; ATTEND Internal Medicine
PROC: 5A1D70Z Performance of Urinary Filtration, Intermittent, Less than 6 Hours Per Day (ICD-10-PCS; principal; 2017-12-22)
DX: I13.2 Hypertensive heart and chronic kidney disease with heart failure and with stage 5 chronic kidney disease, or end stage renal disease (principal); N18.6 End stage renal disease; E43 Unspecified severe protein-calorie malnutrition; I50.33 Acute on chronic diastolic (congestive) heart failure; J96.11 Chronic respiratory failure with hypoxia; Z68.1 Body mass index [BMI] 19.9 or less, adult; J96.12 Chronic respiratory failure with hypercapnia; E87.70 Fluid overload, unspecified; D69.6 Thrombocytopenia, unspecified; E87.5 Hyperkalemia; R60.0 Localized edema; M19.90 Unspecified osteoarthritis, unspecified site; I25.10 Atherosclerotic heart disease of native coronary artery without angina pectoris; F41.9 Anxiety disorder, unspecified; F17.200 Nicotine dependence, unspecified, uncomplicated; M79.89 Other specified soft tissue disorders; J44.9 Chronic obstructive pulmonary disease, unspecified; G43.909 Migraine, unspecified, not intractable, without status migrainosus; K21.9 Gastro-esophageal reflux disease without esophagitis; E78.5 Hyperlipidemia, unspecified; Z71.6 Tobacco abuse counseling; Z99.2 Dependence on renal dialysis; Z99.81 Dependence on supplemental oxygen; I25.2 Old myocardial infarction; Z95.5 Presence of coronary angioplasty implant and graft; Z88.6 Allergy status to analgesic agent; Z71.3 Dietary counseling and surveillance; Z98.51 Tubal ligation status; Z72.89 Other problems related to lifestyle; Z79.899 Other long term (current) drug therapy; Z79.82 Long term (current) use of aspirin; Z88.5 Allergy status to narcotic agent; Z91.040 Latex allergy status
CPT/HCPCS: 36415; 71045; 80048; 80053; 81001; 82140; 83036; 83880; 84100; 85025; 85610; 85730; 87040; 87086; 93005; 93010; 93970; 94640; 94760; 99406; A9270-GY